=== PATIENT | male | born 1945 | race Caucasian/White ===

== ENCOUNTER → 2018-08-05 | Outpatient (CLI) | payer MEDICARE ==
[~2018-08-05] MED LIST: ARICEPT10 MG PO; CARBIDOPA-LEVO1 EA11 PO; COZAAR100 MG PO; CYMBALTA60 MG; DULCOLAX STOOL100 MG; ECOTRIN81 MG; FENOFIBRATE145 MG; FINASTERIDE5 MG PO; HUMULIN N100 UNITS/ SC; LEVODOPA5 GM; MYRBETRIQ25 MG PO; NAMENDA10 MG PO; NORVASC5 MG PO; PANTOPRAZOLE SO40 MG PO; REGADENOSON 0.4 MG/5 ML SYR IV ONE; SEROQUEL25 MG PO; SEROQUEL300 MG PO; SUCRALFATE1 GM PO; SYNTHROID75 MCG PO; TOPROL XL25 MG PO; VITAMIN B-121000 MC2; WELLBUTRIN XL300 MG; ZINC50 M1 PO
--- NOTE | 2018-08-05 15:52 | Cardiology Report ---
DATE OF STUDY: August 05, 2018 NUCLEAR STRESS TEST PROCEDURE: Rest stress SPECT imaging with pharmacologic stressing and gated SPECT imaging. INDICATIONS: Chest pain. PROCEDURE: Pharmacologic stress testing was performed with regadenoson per protocol. The heart rate was 55 beats at rest and increased to 57 6eats per minute during the regadenoson infusion. The rest blood pressure was 135/72 mmHg and decreased to 126/68 mmHg, which is a normal response. Patient did not develop any symptoms. The resting electrocardiogram demonstrated normal sinus bradycardia. There were no S/T segment changes suggestive of myocardial ischemia. Myocardial perfusion imaging was performed at rest following the injection of 10.9 millicuries of tetrofosmin. At peak pharmacologic effect, the patient was injected with 32.7 millicuries of tetrofosmin. Gated post rest tomographic imaging was performed. FINDINGS: The overall quality of the study is fair. Left ventricular cavity was noted to be normal on the rest and stress studies. SPECT images demonstrate homogenous tracer distribution throughout the myocardium. Gated SPECT imaging reveals normal myocardial thickening and wall motion. The left ventricular ejection fraction is calculated to be 51%. IMPRESSION: Myocardial perfusion imaging is normal. Overall left ventricular systolic function was normal without regional wall motion abnormalities. Compared to prior study done March 12, 2018, no significant changes were noted. Job#: [id number] SRAVANTHI
== END ==
LOC: NM 09:10
PROVIDERS: ATTEND Internal Medicine Interventional Cardiology
DX: I20.8 Other forms of angina pectoris (principal)
CPT/HCPCS: 78452; 93017; A9502; J2785

== ENCOUNTER 2019-08-29 16:17 | Observation (INO) | payer MEDICARE, OTHER ==
[~2019-08-29] VITALS: Ht 203.2 cm; Wt 120.2 kg
[~2019-08-29 16:17] MED LIST changes: -FENOFIBRATE145 MG; +FENOFIBRATE145 MG PO; +FLOMAX0.4 MG PO; +LOSARTAN POTASS50 MG PO; +NOVOLIN N100 UNIT/1 SQ; +NOVOLOG100 UNITS1 SQ; -REGADENOSON 0.4 MG/5 ML SYR IV ONE; -WELLBUTRIN XL300 MG; +WELLBUTRIN XL300 MG PO
--- NOTE | 2019-08-29 17:34 | Diagnostic Imaging Report ---
EXAMINATION: CHEST SINGLE (PORTABLE) INDICATION: Chest pain COMPARISON: Chest radiograph of 08/03/2019 FINDINGS: LINES/TUBES:EKG leads overlie the chest. LUNGS:The lung volumes are low. There is perihilar fullness and indistinctness of the pulmonary vasculature. PLEURA:No pleural effusion or pneumothorax. MEDIASTINUM:Cardiomediastinal silhouette is stably enlarged. BONES/SOFT TISSUES:No acute osseous injury. ABDOMEN:No free air under the diaphragm. IMPRESSION: Low lung volumes. Likely interstitial pulmonary edema. No focal pneumonia. Signed by: Bello Lamar MD on 08/29/2019 5:31 PM
[2019-08-29 18:18] LABS: BASOPHILS # (AUTO) 0.1 (0.0-0.1); BASOPHILS % 1.2 % (0.0-1.0); EOSINOPHILS # (AUTO) 0.2 (0.0-0.4); EOSINOPHILS % 5.7 % (0.0-6.0); HEMATOCRIT 35.1 % (38.2-49.6); HEMOGLOBIN 11.3 g/dL (14.0-18.0); LYMPHOCYTES # (AUTO) 0.9 (1.0-3.2); MEAN CORPUSCULAR HEMOGLOBIN 28.3 pg (28-32); MEAN CORPUSCULAR HGB CONC 32.2 g/dL (31-35); MEAN CORPUSCULAR VOLUME 87.8 fL (81-99); MONOCYTES # (AUTO) 0.4 (0.2-0.8); MONOCYTES % 10.9 % (4.4-11.3); NEUTROPHILS # (AUTO) 2.4 (2.1-6.9); NEUTROPHILS % 59.2 % (38.7-80.0); RED CELL DISTRIBUTION WIDTH 15.5 % (11.7-14.4)
[2019-08-29 18:19] LABS: PLATELET COUNT 75 x10e3/uL (140-360)
[2019-08-29 18:27] LABS: ALANINE AMINOTRANSFERASE 57 IU/L (0-55); ALBUMIN 3.8 g/dL (3.5-5.0); ALBUMIN/GLOBULIN RATIO 1.5 (0.8-2.0); ALKALINE PHOSPHATASE 97 IU/L (40-150); ANION GAP 17.5 mmol/L (8-16); BLOOD UREA NITROGEN 15 mg/dL (7-26); BUN/CREATININE RATIO 11 (6-25); CALCIUM 9.2 mg/dL (8.4-10.2); CARBON DIOXIDE 17 mmol/L (22-29); CHLORIDE 105 mmol/L (98-107); CREATINE KINASE 136 IU/L (30-200); CREATININE, SERUM 1.39 mg/dL (0.72-1.25); EST GLOMERULAR FILTRATION RATE 50 ML/MIN (60-); GLUCOSE 248 mg/dL (74-118); POTASSIUM 4.5 mmol/L (3.5-5.1); SODIUM 135 mmol/L (136-145)
--- NOTE | 2019-08-29 19:13 | NUR ---
report given to Baldomero Mccann for continued care
[2019-08-29 20:00] VITALS: BP 145/65
--- NOTE | 2019-08-29 20:26 | NUR ---
Patient arrived to unit from ER via stretcher. No s/s of distress or c/o pain at this time. All safety measures in place. Family at bedside. Will continue to monitor.
[2019-08-29] MEDS ORDERED: ATIVAN1 MG PO (20:51)
[2019-08-29] MEDS ORDERED: TYLENOL WITH C1 EACH PO (20:51)
[2019-08-29] MEDS ORDERED: BRILINTA90 MG PO (20:51)
[2019-08-29] MEDS ORDERED: MIRALAX17 GM PO (20:51)
[2019-08-29 20:56] VITALS: BP 145/65
--- NOTE | 2019-08-29 22:11 | NUR ---
Spoke with Roque Stephens AIR TANK ASSEMBLER regarding patient's elevated blood glucose of 235 and minor c/o of chest pain. Received orders to continue NPH from patient's home medication list and to place patient on low-dose sliding scale of regular insulin. Patient refusing morphine for chest pain. Received orders to continue Tylenol #3, Ativan, and Seroquel from patient's home medication list. Per AIR TANK ASSEMBLER, place patient on renal ADA diet. Will continue to monitor patient.
[2019-08-29] MEDS ORDERED: QUETIAPINE FUMARATE 25 MG TAB PO SCH (22:15)
[2019-08-29] MEDS ORDERED: NPH, HUMAN INSULIN ISOPHANE 100 UNIT/1 ML 3ML VIAL SQ SCH (22:15)
[2019-08-29] MEDS ORDERED: DEXTROSE 50% SYRINGE 50 ML IV PRN (22:15)
--- NOTE | 2019-08-29 22:15 | NUR ---
Patient says he takes 10 mg of Ativan BID PRN. Dose questioned by pharmacy. Patient states he can "make it through the night" without Ativan. Will discuss with provider in AM. Patient in stable condition, no s/s of distress at this time. Will continue to monitor.
[2019-08-29 22:20] VITALS: BP 145/65
[2019-08-29] MEDS: QUETIAPINE FUMARATE 100 MG TAB PO SCH (22:48)
[2019-08-29] MEDS: ACETAMINOPHEN/CODEINE 300MG - 30MG TAB PO PRN (22:48)
--- NOTE | 2019-08-29 22:49 | NUR ---
Patient states that he normally takes 90 units of NPH insulin BID. Requested that nurse administer 70 units at this time. Will continue to monitor patient.
[2019-08-30] VITALS (8 sets, daily range): BP systolic 109–159; BP diastolic 53–76
[2019-08-30 00:25] LABS: CREATINE KINASE 77 IU/L (30-200)
[2019-08-30 05:44] LABS: CHOL/HDL RATIO 4.6 (3.9-4.7)
[2019-08-30 06:10] LABS: CREATINE KINASE MB 1.3 ng/mL (0-5.0)
--- NOTE | 2019-08-30 07:00 | NUR ---
bedside rounds done. pt is alert resting in bed, no s/s of distress. call light within reach and instructed pt to call RN for help
--- NOTE | 2019-08-30 07:16 | NUR ---
Bedside report given to day nurse. Patient resting in bed, no s/s of distress or c/o pain at this time. All safety measures in place.
[2019-08-30] MEDS ORDERED: ACETAMINOPHEN 325 MG TAB PO PRN (07:30)
[2019-08-30] MEDS ORDERED: HYDRALAZINE HCL 20 MG/ML VIAL IV PRN (07:30)
[2019-08-30] MEDS ORDERED: ONDANSETRON HCL INJ 2MG/ML 2ML 2 MG/ML VIAL IV PRN (07:30)
[2019-08-30] MEDS: DONEPEZIL HCL 5 MG TAB PO SCH (08:00)
[2019-08-30] MEDS: INSULIN REGULAR, HUMAN 100 UNIT/1 ML 3ML VIAL SQ SCH ×4 (08:00→22:49)
[2019-08-30] MEDS: LEVOTHYROXINE SODIUM 75 MCG TAB PO SCH (08:00)
[2019-08-30] MEDS: LOSARTAN POTASSIUM 100 MG TAB PO SCH (08:01)
[2019-08-30] MEDS: TICAGRELOR 90 MG TABLET PO SCH ×2 (08:01→17:00)
[2019-08-30] MEDS: PANTOPRAZOLE SOD 40 MG TABEC PO SCH (08:02)
[2019-08-30] MEDS: FENOFIBRATE 160 MG TAB PO SCH (08:02)
[2019-08-30] MEDS: TAMSULOSIN HCL 0.4 MG CAP PO SCH (08:02)
[2019-08-30] MEDS: MEMANTINE 10 MG TAB PO SCH ×2 (08:02→17:27)
[2019-08-30] MEDS: AMLODIPINE BESYLATE 5 MG TAB PO SCH (08:02)
[2019-08-30] MEDS: QUETIAPINE FUMARATE 100 MG TAB PO SCH ×2 (08:03→20:51)
[2019-08-30] MEDS: METOPROLOL SUCCINATE 25 MG TAB XL PO SCH (08:04)
[2019-08-30] MEDS: BUPROPION HCL 150 MG TABCR PO SCH (08:04)
[2019-08-30] MEDS ORDERED: FUROSEMIDE INJ 10 MG/ML 2 ML VIAL IV ONE (08:20)
[2019-08-30] MEDS ORDERED: FENOFIBRATE 145 MG TAB PO SCH (09:00)
[2019-08-30] MEDS ORDERED: ASPIRIN 81 MG CHEW TAB PO SCH (09:00)
[2019-08-30] MEDS ORDERED: CLOPIDOGREL BISULFATE 75 MG TAB PO SCH (09:00)
[2019-08-30] MEDS: ACETAMINOPHEN/CODEINE 300MG - 30MG TAB PO PRN ×3 (09:20→22:50)
[2019-08-30] MEDS: POLYETHYLENE GLYCOL 3350 17 GM PACK PO PRN (09:20)
--- NOTE | 2019-08-30 15:35 | NUR ---
WOUND CARE CONSULT 74 YO MALE HX OF CHEST PAIN , LOOSE STOOL VALERIE 19 ON MODERATE PUP STATUS AND INTERVENTIONS AND ALTERNATING PRESSURE SURFACE LABS: WBC- 4.05, HGB- 11.3 SKIN ASSESSMENT COMPLETE PATIENT PRESENTS WITH LEFT BALJIT ANAL/ GLUTEAL DENUDED AREA 1CM X1CM X.1CM R/T LOOSE STOOL RECENTLY PATIENT REPORTS AREA COMES AND GOES RECOMMENDATIONS: NURSING TO CONTINUE TO MAINTAIN MODERATE PUP STATUS AND INTERVENTIONS AND ALTERNATING MATTRESS NURSING TO CONTINUE TO ASSIST PATIENT OUT OF BED FOR MEALS AND MUCH TOLERATED NURSING TO HELP PATIENT MAINTAIN CLEAN BUTTOCKS / BALJIT AREA DAILY APPLY CALAZIME BARRIER PASTE TO BUTTOCKS AND BALJIT AREA Addendum: 08/30/19 at 1542 by Bob Arvizu RN Amended: Links added.
[2019-08-30] MEDS: LORAZEPAM INJ 2 MG/ML VIAL IV PRN (17:27)
--- NOTE | 2019-08-30 19:17 | NUR ---
bedside shift report received from RN Dyan, patient awake alert, no distress noted, skin warm dry, call light within reach, patient inquiring about last dose of pain medication, next scheduled dose, educated on next dose time, board update will resume care of patient
[2019-08-30] MEDS: ATORVASTATIN 20 MG TAB PO SCH (20:50)
--- NOTE | 2019-08-30 21:45 | NUR ---
MD arlet santoro made aware that patient is requesting NPH@HS 90 units, states "Thats what I take at night" epr CHRISTI Santoro cover with sliding scale and they will reevaluate in the morning
[2019-08-30] MEDS ORDERED: QUETIAPINE FUMARATE 25 MG TAB PO SCH (22:15)
[2019-08-30] MEDS ORDERED: NPH, HUMAN INSULIN ISOPHANE 100 UNIT/1 ML 3ML VIAL SQ SCH (22:15)
[2019-08-31] VITALS (10 sets, daily range): BP systolic 122–174; BP diastolic 58–89
--- NOTE | 2019-08-31 | NUR ---
PATIENT NPO FOR PROCEDURE MATERIAL HANDLING WAREHOUSE SUPERVISOR THIS AM, CATERING MANAGER MADE AWARE OF PATIENT SCHEDULED PROCEDURE THIS AM, ALL WATER AND ICE REMOVED FROM PATIENT REACH, AND PATIENT EDUCATED ON PRE-PROCEDURE REQUIREMENT NPO, PT COMPLIANT
--- NOTE | 2019-08-31 01:20 | Consultation ---
DATE OF CONSULTATION: 08/30/2019 Cardiology Consult Note REASON FOR CONSULT: Chest pain. CHIEF COMPLAINT: Chest pain. HISTORY OF PRESENT ILLNESS: The patient is a 74-year-old man, who is known to me. He was recently admitted to the hospital with chest pain, had an abnormal stress test. However, before he could undergo coronary angiography, developed small-bowel obstruction requiring laparoscopic lysis of adhesion. Once recovered from a small-bowel obstruction and underwent coronary angiography which showed multivessel CAD, had PCI to the LAD and RCA with residual disease in the left circumflex, which was to be treated in a staged fashion. Once he completed his outpatient rehab and followed up in the office, however, now he is presenting with chest pain, left-sided, goes to his back feels like pressure, radiating down to his left arm. He says chest pain is not necessarily exertional, lasts several minutes to several hours. The patient overall is a poor historian and has history of some psych issues and is on significant medications for this as well. REVIEW OF SYSTEMS: As per HPI, otherwise negative. PAST MEDICAL HISTORY: 1. Hypertension. 2. Hyperlipidemia. 3. Diabetes. 4. CAD, status post recent PCI to the LAD and RCA with drug-eluting stent. 5. Small bowel obstruction, status post recent . SOCIAL HISTORY: He does not smoke, drink, or abuse drugs. FAMILY HISTORY: Noncontributory. OUTPATIENT MEDICATIONS: Reviewed. ALLERGIES: ALLERGIC TO SULFA ANTIBIOTICS, DIVALPROEX, LITHIUM, AND SUMATRIPTAN. PHYSICAL EXAMINATION: VITAL SIGNS: Temperature afebrile, pulse 58, respiratory rate 20, blood pressure 133/63, and saturating 96%. GENERAL: No acute distress, well developed and well nourished. CARDIOVASCULAR: Regular rate and rhythm. No murmurs, rubs, or gallops. LUNGS: Clear to auscultation. Decreased breath sounds at the bases. ABDOMEN: Obese, soft, nontender, and nondistended. NEURO AND PSYCH: Alert and oriented to person, place, and time. Normal affect. EXTREMITIES: Lower extremities, warm and well perfused. No ulcerations. 1+ edema at the ankles. INPATIENT MEDICATIONS: Reviewed. LABORATORY DATA: Reviewed. Troponins negative x3. TELEMETRY DATA: Reviewed shows normal sinus rhythm. IMAGING DATA: Reviewed. Chest x-ray shows low lung volumes. ASSESSMENT AND PLAN: 1. Coronary artery disease, status post stent to the LAD and RCA recently with the debridement of left circumflex. 2. Chest pain with typical and atypical features. 3. Hypertension. 4. Hyperlipidemia. 5. Diabetes. PLAN: The patient does have some residual CAD, that requires planned PCI to the left circumflex. Discussed with the patient regarding options, doing this is an outpatient versus performing while he is in the hospital. The patient has already been ruled out for acute LA with serial troponins. The patient prefers to complete his revascularization. Given ongoing episodes of chest pain, we will plan for coronary angiography with intervention, possibly tomorrow or depending on renal function. We will continue to follow. MD NOHEMY Richardson/SHIRAL /[id number]
[2019-08-31] MEDS: LEVOTHYROXINE SODIUM 75 MCG TAB PO SCH (06:31)
--- NOTE | 2019-08-31 06:32 | NUR ---
PATIENT AM MEDICATION GIVEN WITH SMALL SIP OF WATER
[2019-08-31 07:36] LABS: BASOPHILS % 0.8 % (0.0-1.0); EOSINOPHILS # (AUTO) 0.3 (0.0-0.4); EOSINOPHILS % 7.2 % (0.0-6.0); HEMATOCRIT 35.2 % (38.2-49.6); HEMOGLOBIN 11.6 g/dL (14.0-18.0); LYMPHOCYTES % 26.3 % (18.0-39.1); MEAN CORPUSCULAR HEMOGLOBIN 27.8 pg (28-32); MEAN CORPUSCULAR VOLUME 84.2 fL (81-99); MONOCYTES # (AUTO) 0.5 (0.2-0.8); MONOCYTES % 12.2 % (4.4-11.3); PLATELET COUNT 155 x10e3/uL (140-360); RED BLOOD COUNT 4.18 x10e6/uL (4.3-5.7); RED CELL DISTRIBUTION WIDTH 15.4 % (11.7-14.4)
[2019-08-31] MEDS: INSULIN REGULAR, HUMAN 100 UNIT/1 ML 3ML VIAL SQ SCH ×4 (07:57→20:30)
[2019-08-31 07:59] LABS: ANION GAP 15.9 mmol/L (8-16); CALCIUM 9.3 mg/dL (8.4-10.2); CREATININE, SERUM 1.33 mg/dL (0.72-1.25); POTASSIUM 3.9 mmol/L (3.5-5.1)
[2019-08-31] MEDS: FENOFIBRATE 160 MG TAB PO SCH (08:27)
[2019-08-31] MEDS: TAMSULOSIN HCL 0.4 MG CAP PO SCH (08:27)
[2019-08-31] MEDS: LOSARTAN POTASSIUM 100 MG TAB PO SCH (08:27)
[2019-08-31] MEDS: DONEPEZIL HCL 5 MG TAB PO SCH (08:27)
[2019-08-31] MEDS: TICAGRELOR 90 MG TABLET PO SCH ×2 (08:27→16:23)
[2019-08-31] MEDS: AMLODIPINE BESYLATE 5 MG TAB PO SCH (08:28)
[2019-08-31] MEDS: METOPROLOL SUCCINATE 25 MG TAB XL PO SCH (08:28)
[2019-08-31] MEDS: QUETIAPINE FUMARATE 100 MG TAB PO SCH ×2 (08:28→22:16)
[2019-08-31] MEDS: BUPROPION HCL 150 MG TABCR PO SCH (08:28)
[2019-08-31] MEDS: MEMANTINE 10 MG TAB PO SCH ×2 (08:28→16:29)
[2019-08-31] MEDS: PANTOPRAZOLE SOD 40 MG TABEC PO SCH (08:28)
[2019-08-31] MEDS: ACETAMINOPHEN/CODEINE 300MG - 30MG TAB PO PRN ×2 (08:40→20:30)
[2019-08-31] MEDS: LORAZEPAM INJ 2 MG/ML VIAL IV PRN (08:40)
--- NOTE | 2019-08-31 11:52 | NUR ---
Sent to R1 for review.
--- NOTE | 2019-08-31 16:00 | NUR ---
R1 recommending outpatient. Pt to have heart cath tomorrow.
--- NOTE | 2019-08-31 19:02 | NUR ---
SBAR report received from shift, resume care of patient, patient seen in bed AOX3, specialist employee labor relations procedure today cancelled, rescheduled for 09/01/19, patinet will be NPO after midnight, made aware during shift report, acknowledge understanding with teachback, patient whiteboard updated bed in lowest position call light within reach
[2019-08-31] MEDS: POLYETHYLENE GLYCOL 3350 17 GM PACK PO SCH ×2 (20:20→20:40)
[2019-08-31] MEDS: DOCUSATE SODIUM 100 MG CAP PO SCH (20:40)
--- NOTE | 2019-08-31 20:55 | Progress Note ---
DATE: 08/31/2019 Cardiology Progress Note SUBJECTIVE: The patient continues to complain of chest pain and shortness of breath. He reports that chest pain radiates to the left arm and black back. OBJECTIVE: VITAL SIGNS: Temperature 98.3, pulse 67, respiratory rate 18, blood pressure 138/87, and oxygen saturation 97%. GENERAL: Awake, alert, in no distress. LUNGS: Decreased breath sounds at the bases, otherwise clear to auscultation. CARDIOVASCULAR: Normal rate, regular rhythm. No murmur. Normal S1, S2. ABDOMEN: Soft, nontender. EXTREMITIES: 1+ edema. CARDIAC MEDICATIONS: 1. Metoprolol succinate 25 mg p.o. daily. 2. Amlodipine 5 mg p.o. daily. 3. Losartan 50 mg p.o. daily. 4. Levothyroxine 75 mcg p.o. daily. 5. Atorvastatin 20 mg p.o. at bedtime. 6. Ticagrelor 90 mg p.o. b.i.d.. LABORATORY DATA: WBC 3.76, hemoglobin 11.6, hematocrit 35.2, and platelets 155. Sodium 137, potassium 3.9, chloride 105, CO2 of 20, BUN 15, creatinine 1.33. Telemetry was personally reviewed and interpreted, revealing normal sinus rhythm. IMPRESSION: 1. Coronary artery disease, status post LAD and RCA PCI with residual disease of the circumflex. 2. Chest pain with typical and atypical features. 3. Hypertension. 4. Hyperlipidemia. 5. Diabetes mellitus. RECOMMENDATIONS: Planned for PCI of the circumflex tomorrow. Continue dual anti-platelet therapy. Continue current cardiac medications. Monitor the patient closely on Telemetry. Blood pressure control. We will titrate up metoprolol. Thank you for this consult. We will continue to follow. Nannette Landis MD ABS/MODL /[id number]
[2019-08-31] MEDS: ATORVASTATIN 20 MG TAB PO SCH (22:16)
[2019-09-01] VITALS (19 sets, daily range): BP systolic 112–170; BP diastolic 59–92
[2019-09-01] MEDS: LORAZEPAM INJ 2 MG/ML VIAL IV PRN ×2 (00:55→19:49)
[2019-09-01 05:31] LABS: BASOPHILS # (AUTO) 0.1 (0.0-0.1); BASOPHILS % 1.3 % (0.0-1.0); EOSINOPHILS # (AUTO) 0.3 (0.0-0.4); EOSINOPHILS % 6.6 % (0.0-6.0); HEMATOCRIT 33.9 % (38.2-49.6); HEMOGLOBIN 11.2 g/dL (14.0-18.0); LYMPHOCYTES # (AUTO) 1.1 (1.0-3.2); LYMPHOCYTES % 28.5 % (18.0-39.1); MEAN CORPUSCULAR HEMOGLOBIN 28.3 pg (28-32); MEAN CORPUSCULAR VOLUME 85.6 fL (81-99); MONOCYTES # (AUTO) 0.5 (0.2-0.8); MONOCYTES % 11.9 % (4.4-11.3); NEUTROPHILS # (AUTO) 1.9 (2.1-6.9); NEUTROPHILS % 50.9 % (38.7-80.0); PLATELET COUNT 154 x10e3/uL (140-360); RED BLOOD COUNT 3.96 x10e6/uL (4.3-5.7); RED CELL DISTRIBUTION WIDTH 15.3 % (11.7-14.4)
[2019-09-01] MEDS: LEVOTHYROXINE SODIUM 75 MCG TAB PO SCH (05:37)
[2019-09-01 05:50] LABS: ANION GAP 16.8 mmol/L (8-16); CALCIUM 9.2 mg/dL (8.4-10.2); CREATININE, SERUM 1.32 mg/dL (0.72-1.25); MAGNESIUM 1.7 MG/DL (1.3-2.1); PHOSPHORUS 3.9 MG/DL (2.3-4.7); POTASSIUM 3.8 mmol/L (3.5-5.1)
[2019-09-01] MEDS: TICAGRELOR 90 MG TABLET PO SCH ×2 (07:00→17:00)
[2019-09-01] MEDS: INSULIN REGULAR, HUMAN 100 UNIT/1 ML 3ML VIAL SQ SCH ×4 (07:45→22:18)
[2019-09-01] MEDS: FENOFIBRATE 160 MG TAB PO SCH (09:00)
[2019-09-01] MEDS ORDERED: LIDOCAINE HCL 2% LOCAL 20 ML VIAL ONE (12:23)
[2019-09-01] MEDS ORDERED: HEPARIN SOD/SOD CHLORIDE 1,000 ML ONE (12:23)
[2019-09-01] MEDS ORDERED: IOPAMIDOL 370 MG/ML 200 ML INFUS..BTL INJ ONE ×2 (12:23→14:14)
[2019-09-01] MEDS ORDERED: HEPARIN SOD (PORCINE) 1000 UNIT/ML 30ML ONE (12:23)
[2019-09-01] MEDS ORDERED: SODIUM CHLORIDE 0.9% 1000ML 1,000 ML ONE (12:24)
[2019-09-01] MEDS ORDERED: MIDAZOLAM HCL 2 MG/2 ML VIAL ONE ×2 (12:28→14:17)
[2019-09-01] MEDS ORDERED: VERAPAMIL HCL 2.5 MG/ML 2 ML VIAL ONE (12:28)
[2019-09-01] MEDS ORDERED: FENTANYL CITRATE/PF 100MCG/2 ML INJ ONE (12:29)
[2019-09-01] MEDS ORDERED: NITROGLYCERIN/D5W 200 MCG/ML 250 ML ONE (12:29)
[2019-09-01] MEDS ORDERED: TICAGRELOR 90 MG TABLET ONE (14:06)
--- NOTE | 2019-09-01 14:25 | NUR ---
1425Received pt to room#10, Identiferx2,bedside report received from SITA Nails. Alert oriented and appropriate, PERRLA, respirations even and unlabored to room air. Pulses x4 extremities equal and strong. Pedal pulses PT/DP x4 Cap fill brisk < 3 sec. Rt Tr band approach ok to decrease air at 1615pm. No gross issues pain,pallor,pressure or dysthrhmia. Skin warm and dry integrity appears D/I. IV 20g to left wrist, presents healthy w/o s/s of infiltration or complaint. Abdomen soft and supple. pt offered toileting, denies need to urinate or defecate. No personal affects with patient. Family at bedside. Pt and family verbalizes understanding of POC. Currently w/o complaint of pain or need. Ordered diet restart and reaching out to Dr Boyd to speak to . mitch/sita
[2019-09-01] MEDS: DOCUSATE SODIUM 100 MG CAP PO SCH ×3 (15:00→20:04)
--- NOTE | 2019-09-01 16:15 | NUR ---
1615pm RADIAL Compression removal: Initial Cuff volume 12 cc 1615p -2cc Removed No hematoma/bleeding noted with normal neurovascular function. 1630p -5cc Removed No hematoma/ bleeding noted with normal neurovascular function. 1645 -5 cc Removed No hematoma/bleeding noted with normal neurovascular function. Air removal completed. Stasis achieved sterile 2x2,Tegaderm, Coban dressing No hematoma, bleeding noted with normal neurovascular function. Wrist splint in place. Pt instructed on POC. Ds/Rn
[2019-09-01] MEDS: MEMANTINE 10 MG TAB PO SCH ×2 (17:00→17:37)
[2019-09-01] MEDS: POLYETHYLENE GLYCOL 3350 17 GM PACK PO SCH ×2 (17:00→17:37)
--- NOTE | 2019-09-01 17:00 | NUR ---
1700 Called report to Jluis BUCKNER. Dr Boyd did speak to on phone and update on findings. Discussed Tr band site care with teaching tool Presented pt with diagram,stent card and instructions to call office and cancel. Thursday recheck appt. and f/o 2wks Transfer per bed with tele on with RN escort. Stable vs and ekg. Family aware of importance of f/o care. Bed in low position,call light at bedside and pt aware to ask for help. No gross issues pain,pallor,pressure or dysrhythmia. Tr band reminder splint may be removed in am. mitch/jasmin
[2019-09-01] MEDS: DONEPEZIL HCL 5 MG TAB PO SCH (17:35)
[2019-09-01] MEDS: ASPIRIN 81 MG ENTERIC COATED PO SCH (17:35)
[2019-09-01] MEDS: TAMSULOSIN HCL 0.4 MG CAP PO SCH (17:37)
[2019-09-01] MEDS: PANTOPRAZOLE SOD 40 MG TABEC PO SCH (17:37)
[2019-09-01] MEDS: LOSARTAN POTASSIUM 100 MG TAB PO SCH (17:37)
[2019-09-01] MEDS: QUETIAPINE FUMARATE 100 MG TAB PO SCH ×2 (17:37→22:25)
[2019-09-01] MEDS: AMLODIPINE BESYLATE 5 MG TAB PO SCH (17:37)
[2019-09-01] MEDS: METOPROLOL SUCCINATE 25 MG TAB XL PO SCH (17:38)
[2019-09-01] MEDS: BUPROPION HCL 150 MG TABCR PO SCH (17:38)
--- NOTE | 2019-09-01 19:23 | NUR ---
SBAR received from Jluis BUCKNER, patient seen awake alert, no c/o pressure pain noted at right radial site s/p labor arbitrator hearing office stent placement, no bleeding dressing C/D/I, Tr band reminder splint may be removed in am. patient requesting ativan at shift change, per SITA ziegler patient was given medication late, pt aware that 2100 dose of seroquel will be given at appropriate time, call light within reach, denies need to urinate or defecate, urinal at bedside
[2019-09-01] MEDS: ATORVASTATIN 20 MG TAB PO SCH (20:04)
--- NOTE | 2019-09-01 23:32 | NUR ---
MD Prince alegre, pt seen and evaluated, pt update s/p stent placement given verbally to MD SWAIN, INCENTIVE SPIROMETRY PROTOCOL ORDERED, CARRIED OUT, PATIENT EDUCATED ON IS, EDUCATE TO USE ONCE qHOUR WHILE AWAKE, ACKNOWLEDGE UNDERSTANDING WITH TEACHBACK
[2019-09-01] MEDS ORDERED: DEXTROSE 50% SYRINGE 50 ML IV PRN (23:45)
[2019-09-02] VITALS (10 sets, daily range): BP systolic 123–144; BP diastolic 60–74
[2019-09-02] MEDS: POLYETHYLENE GLYCOL 3350 17 GM PACK PO PRN (00:01)
[2019-09-02] MEDS: LEVOTHYROXINE SODIUM 75 MCG TAB PO SCH (04:56)
--- NOTE | 2019-09-02 05:14 | NUR ---
0430 patient HR report 50 bpm during routine vitals check, reassessed at 0435 patient HR noted 62bpm, no distress noted, skin warm dry, denies chest pain 0500 schedule medication given to patient PO tolerated well, continues to deny Chest Pressure, chest pressure lightheadedness, or heart palpitations
[2019-09-02 05:51] LABS: EOSINOPHILS # (AUTO) 0.3 (0.0-0.4); EOSINOPHILS % 6.4 % (0.0-6.0); HEMATOCRIT 34.4 % (38.2-49.6); HEMOGLOBIN 11.2 g/dL (14.0-18.0); LYMPHOCYTES # (AUTO) 0.9 (1.0-3.2); MEAN CORPUSCULAR HEMOGLOBIN 27.8 pg (28-32); MEAN CORPUSCULAR HGB CONC 32.6 g/dL (31-35); MEAN CORPUSCULAR VOLUME 85.4 fL (81-99); MONOCYTES # (AUTO) 0.5 (0.2-0.8); MONOCYTES % 11.5 % (4.4-11.3); NEUTROPHILS # (AUTO) 2.5 (2.1-6.9); NEUTROPHILS % 58.6 % (38.7-80.0); PLATELET COUNT 160 x10e3/uL (140-360); RED BLOOD COUNT 4.03 x10e6/uL (4.3-5.7); RED CELL DISTRIBUTION WIDTH 15.2 % (11.7-14.4)
[2019-09-02 06:23] LABS: BLOOD UREA NITROGEN 16 mg/dL (7-26); BUN/CREATININE RATIO 14 (6-25); CALCIUM 9.2 mg/dL (8.4-10.2); CARBON DIOXIDE 20 mmol/L (22-29); CHLORIDE 106 mmol/L (98-107); CREATININE, SERUM 1.14 mg/dL (0.72-1.25); EST GLOMERULAR FILTRATION RATE > 60 ML/MIN (60-); GLUCOSE 267 mg/dL (74-118); MAGNESIUM 1.6 MG/DL (1.3-2.1); PHOSPHORUS 3.5 MG/DL (2.3-4.7); SODIUM 138 mmol/L (136-145)
[2019-09-02] MEDS ORDERED: INSULIN REGULAR, HUMAN 100 UNIT/1 ML 3ML VIAL SQ SCH (07:30)
[2019-09-02] MEDS ORDERED: TOPROL XL25 MG PO (08:18)
[2019-09-02] MEDS ORDERED: LIPITOR20 MG PO (08:18)
[2019-09-02] MEDS ORDERED: ASPIRIN EC81 MG PO (08:18)
--- NOTE | 2019-09-02 08:24 | NUR ---
09/01 S/P CATH WITH 2 VESSEL STENT PLACEMENT SENT RESULTS OF CATH TO R1 STILL RECOMMENDING OUTPATIENT
[2019-09-02] MEDS: DOCUSATE SODIUM 100 MG CAP PO SCH ×3 (09:00→21:39)
[2019-09-02] MEDS: AMLODIPINE BESYLATE 5 MG TAB PO SCH (09:00)
[2019-09-02] MEDS: TAMSULOSIN HCL 0.4 MG CAP PO SCH (09:00)
[2019-09-02] MEDS: TICAGRELOR 90 MG TABLET PO SCH ×2 (09:00→16:51)
[2019-09-02] MEDS: MEMANTINE 10 MG TAB PO SCH ×2 (09:00→16:51)
[2019-09-02] MEDS: METOPROLOL SUCCINATE 25 MG TAB XL PO SCH (09:00)
[2019-09-02] MEDS: ASPIRIN 81 MG ENTERIC COATED PO SCH (09:00)
[2019-09-02] MEDS: DONEPEZIL HCL 5 MG TAB PO SCH (09:00)
[2019-09-02] MEDS: LOSARTAN POTASSIUM 100 MG TAB PO SCH (09:00)
[2019-09-02] MEDS: QUETIAPINE FUMARATE 100 MG TAB PO SCH ×2 (09:00→21:39)
[2019-09-02] MEDS: PANTOPRAZOLE SOD 40 MG TABEC PO SCH (09:00)
[2019-09-02] MEDS: FENOFIBRATE 160 MG TAB PO SCH (09:00)
[2019-09-02] MEDS: POLYETHYLENE GLYCOL 3350 17 GM PACK PO SCH ×2 (09:00→16:51)
[2019-09-02] MEDS: BUPROPION HCL 150 MG TABCR PO SCH (09:01)
--- NOTE | 2019-09-02 10:04 | NUR ---
EDUCATED ABOUT NAJERA, SIGNED, FILED IN CHART, WITH COPY LEFT WITH FAMILY AT BEDSIDE. FAXED CLINICALS TO [facility], PT WILL RETURN TODAY TO FACILITY.
[2019-09-02] MEDS: LORAZEPAM INJ 2 MG/ML VIAL IV PRN ×2 (10:12→23:04)
[2019-09-02] MEDS: NPH, HUMAN INSULIN ISOPHANE 100 UNIT/1 ML 3ML VIAL SQ SCH ×2 (11:37→17:38)
[2019-09-02] MEDS: INSULIN REGULAR, HUMAN 100 UNIT/1 ML 3ML VIAL SQ SCH ×4 (11:37→21:00)
--- NOTE | 2019-09-02 15:28 | NUR ---
SPOKE WITH [facility] AND SHE STATE DOES NOT HAVE CLINICALS COPIED AND HAND DELIVERED TO BUILDING, LET KNOW WHO WILL BE HERE TOMORROW AND THE NEED FOR APPROVAL TODAY OR TOMORROW.
--- NOTE | 2019-09-02 16:55 | NUR ---
OBS STATUS NO INPT PER R1 AWAIT AUTH FROM INSURANCE FOR TRANSFER BACK TO [facility]
--- NOTE | 2019-09-02 19:30 | NUR ---
BEDSIDE SHIFT REPORT RECEIVED FROM HALEIGH BUCKNER, PATIENT AWAKE ALERT, SKIN WARM DRY, LEFT HAND IV PATENT, CHART REVIEWED NO PENDING PROCEDURE, NO C/O PAIN OR DISCOMFORT AT THIS TIME, CALL LIGHT WITHIN REACH, EDUCATED ON HOURLY ROUNDING AND 5P'S, ACKNOWLEDGE UNDERSTANDING WITH TEACHBACK
--- NOTE | 2019-09-02 20:23 | Diagnostic Imaging Report ---
Examination: Single AP view of the chest. COMPARISON: 08/29 INDICATION: dyspnea DISCUSSION: Lines/tubes: None. Lungs: The lungs are well inflated and clear. No pneumonia or pulmonary edema. Pleura: There is no pleural effusion or pneumothorax. Heart and mediastinum: Cardiomegaly. Bones and soft tissues: No acute bony abnormalities. IMPRESSION: 1. No acute cardiopulmonary abnormalities. Signed by: Dr. Christiano Salinas M.D. on 09/02/2019 8:20 PM
[2019-09-02] MEDS: ACETAMINOPHEN/CODEINE 300MG - 30MG TAB PO PRN (21:38)
[2019-09-02] MEDS: ATORVASTATIN 20 MG TAB PO SCH (21:39)
--- NOTE | 2019-09-02 22:00 | NUR ---
PATIENT REQUESTING ATIVAN IV FOR AGITATION, IV LEFT WRIST PATENT FLUSHES W/O DIFFICULTY REQUEST CARRIED OUT, RESTING COMFORTABLY,
--- NOTE | 2019-09-02 23:17 | Progress Note ---
DATE: 09/02/2019 Cardiology Progress Note SUBJECTIVE: The patient reports he continues to have chest pain, but this has improved. He also endorses shortness of breath. OBJECTIVE: VITAL SIGNS: Temperature 97.1 degrees, pulse 65, respirations 18, blood pressure 131/71, oxygen saturation 97%. GENERAL: Awake, alert in no distress. LUNGS: Decreased breath sounds at the bases, otherwise clear to auscultation. CARDIOVASCULAR: Normal rate, regular rhythm. No murmur. Normal S1, S2. ABDOMEN: Soft, nontender. EXTREMITIES: 1+ trace edema. CARDIAC MEDICATIONS: Aspirin 81 mg p.o. daily, amlodipine 5 mg p.o. daily, levothyroxine 75 mcg p.o. daily, atorvastatin 20 mg p.o. at bedtime, metoprolol succinate 50 mg p.o. daily, and Brilinta 90 mg p.o. b.i.d. LABORATORY DATA: WBC 4.19, hemoglobin 11.2, hematocrit 34.4, and platelets 160. Sodium 138, potassium 4, chloride 106, CO2 of 20, BUN 16, and creatinine 1.14. TELEMETRY: Sinus bradycardia. IMPRESSION: 1. Coronary artery disease, status post LAD and circumflex PCI yesterday. 2. Chest pain with typical and atypical features. 3. Hypertension. 4. Hyperlipidemia. 5. Diabetes mellitus. RECOMMENDATIONS: The patient had PCI of the circumflex and LAD yesterday. Continue dual-antiplatelet therapy. Continue current cardiac medications. Monitor patient closely on telemetry. Blood pressure is acceptable. Given complaint of dyspnea, we will check BNP and chest x-ray. Thank you for this consult. We will continue to follow. Nannette Landis MD ABS/MODL /[id number]
[2019-09-03] VITALS (9 sets, daily range): BP systolic 126–142; BP diastolic 58–74
[2019-09-03] MEDS: LEVOTHYROXINE SODIUM 75 MCG TAB PO SCH (05:08)
[2019-09-03] MEDS: INSULIN REGULAR, HUMAN 100 UNIT/1 ML 3ML VIAL SQ SCH ×4 (07:44→21:00)
[2019-09-03] MEDS: NPH, HUMAN INSULIN ISOPHANE 100 UNIT/1 ML 3ML VIAL SQ SCH ×2 (08:32→17:32)
[2019-09-03] MEDS: FENOFIBRATE 160 MG TAB PO SCH (09:00)
--- NOTE | 2019-09-03 09:25 | NUR ---
Spoke with Rossi with admissions at [facility]. Still pending auth.
[2019-09-03] MEDS: LOSARTAN POTASSIUM 100 MG TAB PO SCH (09:28)
[2019-09-03] MEDS: TAMSULOSIN HCL 0.4 MG CAP PO SCH (09:28)
[2019-09-03] MEDS: AMLODIPINE BESYLATE 5 MG TAB PO SCH (09:28)
[2019-09-03] MEDS: MEMANTINE 10 MG TAB PO SCH ×2 (09:28→17:32)
[2019-09-03] MEDS: DONEPEZIL HCL 5 MG TAB PO SCH (09:28)
[2019-09-03] MEDS: TICAGRELOR 90 MG TABLET PO SCH ×2 (09:28→17:32)
[2019-09-03] MEDS: ASPIRIN 81 MG ENTERIC COATED PO SCH (09:28)
[2019-09-03] MEDS: POLYETHYLENE GLYCOL 3350 17 GM PACK PO SCH ×2 (09:28→17:32)
[2019-09-03] MEDS: DOCUSATE SODIUM 100 MG CAP PO SCH ×3 (09:28→22:00)
[2019-09-03] MEDS: BUPROPION HCL 150 MG TABCR PO SCH (09:29)
[2019-09-03] MEDS: METOPROLOL SUCCINATE 25 MG TAB XL PO SCH (09:29)
[2019-09-03] MEDS: QUETIAPINE FUMARATE 100 MG TAB PO SCH ×2 (09:29→22:00)
[2019-09-03] MEDS: PANTOPRAZOLE SOD 40 MG TABEC PO SCH (09:29)
--- NOTE | 2019-09-03 10:38 | Progress Note ---
DATE: 09/03/2019 Cardiology Progress Note SUBJECTIVE: The patient endorses some shortness of breath especially when he is moving around. He is mostly bed ridden. He denies any chest pain. OBJECTIVE: VITAL SIGNS: Temperature 97.4, pulse 55, respiratory rate 18, blood pressure 133/65, oxygen saturation 97% on room air. GENERAL: Alert and oriented x3. Resting comfortably in bed, does not appear to be in any acute distress. NECK: Supple. LUNGS: Diminished breath sounds throughout. No wheezing. No rhonchi or crackles. CARDIOVASCULAR: Normal rate and rhythm. No murmurs, no gallops. Normal S1, S2. ABDOMEN: Rounded, soft, nontender. EXTREMITIES: Lower extremity trace edema bilaterally. CARDIOVASCULAR MEDICATIONS: Metoprolol succinate 50 daily, aspirin 81 mg p.o. daily, amlodipine 5 mg p.o. daily, atorvastatin 20 mg p.o. at bedtime. LABORATORY DATA: WBC 4.19, hemoglobin 11.2, hematocrit 34.4, platelets 160. TELEMETRY: Sinus rhythm. IMAGING: Chest x-ray from yesterday with no acute cardiopulmonary abnormalities. IMPRESSION: 1. Coronary artery disease, status post LAD and circumflex PCI on . 2. Chest pain with typical and atypical features, which is resolved now. 3. Hypertension. 4. Hyperlipidemia. 5. Diabetes mellitus. 6. Morbid obesity. RECOMMENDATIONS: JAEGER and shortness of breath, likely related to morbid obesity. Continue to monitor recurrence of chest pain. For now, continue the above-listed cardiac medications. Continue to maintain on telemetry. The patient is stable from a cardiovascular standpoint and is okay for discharge with close followup with Cardiology. Dictated by Francisca Goldstein NP MD YAMILA Herrmann/HAN /[id number]
--- NOTE | 2019-09-03 11:40 | NUR ---
Jonh Richey with [facility], they need new PT notes for auth request. CHRISTI Vo placed order for PT to eval and treat.
[2019-09-03] MEDS: LORAZEPAM INJ 2 MG/ML VIAL IV PRN ×2 (12:24→22:02)
--- NOTE | 2019-09-03 18:35 | NUR ---
Nutrition Screen Note RD Recommendation for Physician: Consider liberalizing diet to a regular diet Plan of Care: RD following, monitoring for tolerance and adequacy Nutrition reason for involvement: LOS Primary Diagnose(s): Chest pain PMH: T2DM, CAD, HTN, hyperlipidemia Ht:80 in Wt: 261 lb BMI: 28.7kg/m2 IBW: [address] Assessment: Initial encounter with patient. Diet Hx. Pt has no known food allergies. Pt with C/O not getting enough food. Pt requesting larger portions. Pt with a good Po intake/appetite and RD agrees Pt would benefit from more calories. Pt denies any difficulty chewing or swallowing, nor has any N,V,D. No significant wt changes. Current Diet: 1800 ADA Malnutrition Evaluation (08/30/2019) The patient does not meet criteria for a specified degree of malnutrition at this time. Will re-evaluate at follow-up as appropriate. Diet Education Needs Assessment: Diet education not indicated Nutrition Care Level: marina Clayton RD, LD, [facility]
--- NOTE | 2019-09-03 19:55 | NUR ---
Received change of shift report from AM nurse. Walking rounds completed.
[2019-09-03] MEDS: ATORVASTATIN 20 MG TAB PO SCH (22:00)
[2019-09-04] VITALS (8 sets, daily range): BP systolic 110–179; BP diastolic 60–80
--- NOTE | 2019-09-04 | NUR ---
Patient turned q2 hours and PRN. BS at 271 insulin givens as ordered by .Pateint states I feel very good.
[2019-09-04 04:20] LABS: BASOPHILS % 0.6 % (0.0-1.0); EOSINOPHILS # (AUTO) 0.3 (0.0-0.4); EOSINOPHILS % 5.1 % (0.0-6.0); HEMATOCRIT 38.9 % (38.2-49.6); HEMOGLOBIN 12.6 g/dL (14.0-18.0); LYMPHOCYTES % 19.3 % (18.0-39.1); MEAN CORPUSCULAR HEMOGLOBIN 27.7 pg (28-32); MEAN CORPUSCULAR HGB CONC 32.4 g/dL (31-35); MEAN CORPUSCULAR VOLUME 85.5 fL (81-99); MONOCYTES # (AUTO) 0.4 (0.2-0.8); MONOCYTES % 8.8 % (4.4-11.3); NEUTROPHILS # (AUTO) 3.2 (2.1-6.9); NEUTROPHILS % 65.8 % (38.7-80.0); PLATELET COUNT 153 x10e3/uL (140-360); RED BLOOD COUNT 4.55 x10e6/uL (4.3-5.7); RED CELL DISTRIBUTION WIDTH 15.2 % (11.7-14.4)
[2019-09-04 04:38] LABS: ANION GAP 18.1 mmol/L (8-16); BLOOD UREA NITROGEN 14 mg/dL (7-26); BUN/CREATININE RATIO 12 (6-25); CALCIUM 9.6 mg/dL (8.4-10.2); CARBON DIOXIDE 16 mmol/L (22-29); CHLORIDE 107 mmol/L (98-107); CREATININE, SERUM 1.17 mg/dL (0.72-1.25); EST GLOMERULAR FILTRATION RATE > 60 ML/MIN (60-); GLUCOSE 243 mg/dL (74-118); MAGNESIUM 1.6 MG/DL (1.3-2.1); POTASSIUM 4.1 mmol/L (3.5-5.1); SODIUM 137 mmol/L (136-145)
[2019-09-04] MEDS: LEVOTHYROXINE SODIUM 75 MCG TAB PO SCH (05:09)
--- NOTE | 2019-09-04 05:35 | NUR ---
Patient resting quitly at this time. Continue monitor.
[2019-09-04] MEDS: NPH, HUMAN INSULIN ISOPHANE 100 UNIT/1 ML 3ML VIAL SQ SCH (08:02)
[2019-09-04] MEDS: INSULIN REGULAR, HUMAN 100 UNIT/1 ML 3ML VIAL SQ SCH (08:03)
[2019-09-04] MEDS: ASPIRIN 81 MG ENTERIC COATED PO SCH (08:26)
[2019-09-04] MEDS: QUETIAPINE FUMARATE 100 MG TAB PO SCH ×2 (08:26→21:27)
[2019-09-04] MEDS: PANTOPRAZOLE SOD 40 MG TABEC PO SCH (08:26)
[2019-09-04] MEDS: DOCUSATE SODIUM 100 MG CAP PO SCH ×3 (08:26→21:27)
[2019-09-04] MEDS: TAMSULOSIN HCL 0.4 MG CAP PO SCH (08:26)
[2019-09-04] MEDS: MEMANTINE 10 MG TAB PO SCH ×2 (08:26→17:21)
[2019-09-04] MEDS: DONEPEZIL HCL 5 MG TAB PO SCH (08:26)
[2019-09-04] MEDS: POLYETHYLENE GLYCOL 3350 17 GM PACK PO SCH ×2 (08:26→17:21)
[2019-09-04] MEDS: LOSARTAN POTASSIUM 100 MG TAB PO SCH (08:26)
[2019-09-04] MEDS: TICAGRELOR 90 MG TABLET PO SCH ×2 (08:26→17:21)
[2019-09-04] MEDS: BUPROPION HCL 150 MG TABCR PO SCH (08:26)
[2019-09-04] MEDS: AMLODIPINE BESYLATE 5 MG TAB PO SCH (08:26)
[2019-09-04] MEDS: METOPROLOL SUCCINATE 25 MG TAB XL PO SCH (08:27)
[2019-09-04] MEDS: FENOFIBRATE 160 MG TAB PO SCH (09:00)
[2019-09-04] MEDS ORDERED: DEXTROSE 50% SYRINGE 50 ML IV PRN (10:45)
[2019-09-04] MEDS: INSULIN LISPRO 100 UNIT/1 ML 3ML VIAL SQ SCH ×5 (11:46→21:00)
--- NOTE | 2019-09-04 12:57 | Progress Note ---
DATE: 09/04/2019 Cardiology Progress Note SUBJECTIVE: The patient reports he is just unhappy today. He denies any chest pain. OBJECTIVE: VITAL SIGNS: Temperature 96.3, pulse 59, respiratory rate 22, blood pressure 131/60, and oxygen saturation 94% on room air. GENERAL: Alert and oriented x3, resting in bed, does not appear to be in acute distress. NECK: Supple. LUNGS: Diminished breath sounds throughout. No crackles. No wheezing. No rhonchi. CARDIOVASCULAR: Normal rate and rhythm. Normal S1, S2. No murmurs, no gallops. ABDOMEN: Rounded, soft, and nontender. EXTREMITIES: Lower extremity trace edema bilaterally. CARDIOVASCULAR MEDICATIONS: 1. Levothyroxine 75 mcg p.o. daily. 2. Atorvastatin 20 p.o. at bedtime. 3. Metoprolol 50 p.o. daily. 4. Aspirin 81 mg p.o. daily. 5. Losartan 50 mg p.o. daily. 6. Amlodipine 5 mg p.o. daily. LABORATORY DATA: WBCs 4.91, hemoglobin 4.55, hematocrit 12.6, and platelets 153. Sodium 137, potassium 4.1, BUN 14, and creatinine 1.17. TELEMETRY: Sinus rhythm. IMPRESSION: 1. Coronary artery disease, status post left anterior descending and circumflex percutaneous coronary intervention on the 01 September 2019. 2. Chest pain with atypical and typical features, which is now resolved. 3. Hypertension. 4. Hyperlipidemia. 5. Diabetes mellitus. 6. Morbid obesity. PLAN: Continue the above-listed cardiac medication. In addition, add Brilinta. Continue to monitor on telemetry. The patient will need close followup with Cardiology. We will continue to follow this patient. Dictated by Francisca Goldstein NP MD YAMILA Herrmann/HAN /[id number]
--- NOTE | 2019-09-04 19:53 | NUR ---
SBAR report received at bedside, patient seen awake alert, family at bedside, no distress, denies chest pain, bed in lowest position, skin warm dry, call light within reach, will continue to monitor, telemetry in place
[2019-09-04] MEDS: ATORVASTATIN 20 MG TAB PO SCH (21:27)
[2019-09-05] VITALS (7 sets, daily range): BP systolic 136–161; BP diastolic 69–82
[2019-09-05] MEDS: LEVOTHYROXINE SODIUM 75 MCG TAB PO SCH (05:27)
[2019-09-05] MEDS: INSULIN LISPRO 100 UNIT/1 ML 3ML VIAL SQ SCH ×3 (07:30→12:10)
[2019-09-05] MEDS: FENOFIBRATE 160 MG TAB PO SCH (09:00)
[2019-09-05] MEDS: TICAGRELOR 90 MG TABLET PO SCH (09:06)
[2019-09-05] MEDS: LOSARTAN POTASSIUM 100 MG TAB PO SCH (09:06)
[2019-09-05] MEDS: DONEPEZIL HCL 5 MG TAB PO SCH (09:06)
[2019-09-05] MEDS: TAMSULOSIN HCL 0.4 MG CAP PO SCH (09:06)
[2019-09-05] MEDS: DOCUSATE SODIUM 100 MG CAP PO SCH (09:06)
[2019-09-05] MEDS: ASPIRIN 81 MG ENTERIC COATED PO SCH (09:06)
[2019-09-05] MEDS: PANTOPRAZOLE SOD 40 MG TABEC PO SCH (09:07)
[2019-09-05] MEDS: AMLODIPINE BESYLATE 5 MG TAB PO SCH (09:07)
[2019-09-05] MEDS: MEMANTINE 10 MG TAB PO SCH (09:07)
[2019-09-05] MEDS: POLYETHYLENE GLYCOL 3350 17 GM PACK PO SCH (09:07)
[2019-09-05] MEDS: METOPROLOL SUCCINATE 25 MG TAB XL PO SCH (09:07)
[2019-09-05] MEDS: QUETIAPINE FUMARATE 100 MG TAB PO SCH (09:07)
[2019-09-05] MEDS: BUPROPION HCL 150 MG TABCR PO SCH (09:07)
[2019-09-05] MEDS: LORAZEPAM INJ 2 MG/ML VIAL IV PRN (11:05)
--- NOTE | 2019-09-05 13:20 | NUR ---
[facility]AC[facility] DISCHARGE INFORMATION PATIENT [facility] BEEN [facility] ADDRESS: [id number] MD: DMITRIY ROOM: [id number] NURSE CALL REPORT TO: [phone] IMM SIGNED AND OBTAINED (if applicable): THE FOLLOWING DOCUMENTS MUST ACCOMPANY PATIENT FOR TRANSFER: COPIED CHART: YES
--- NOTE | 2019-09-05 13:50 | NUR ---
Called report to [facility] and given to Juliana Driscoll LVN of patient's status.
--- NOTE | 2019-09-05 14:31 | NUR ---
WOUND CARE CONSULT 74 YO MALE HX CHEST PAIN VALERIE 15 ON MODERATE PUP STATUS AND INTERVENTIONS AND ALTERNATING PRESSURE MATTRESS LABS: WBC- 4.91,HGB-12.6, GLUCOSE - 120 SKIN ASSESSMENT COMPLETE PATIENT PRESENTS WITH NEWLY CLOSED AREA PATIENT PREVIOUSLY PRESENTED WITH R/T MOISTURE AND LOOSE STOOL AREA IS NO LONGER OPEN MEASURES .5CMX .5CM RECOMMENDATIONS : NURSING TO CONTINUE TO MAINTAIN MODERATE PUP STATUS AND INTERVENTIONS NURSING TO CONTINUE TO ASSIST PATIENT UP FOR MEALS AND MUCH TOLERATED NURSING TO MAINTAIN PATIENT BALJIT AREA AND BUTTOCKS CLEAN AND DRY NURSING TO APPLY DAILY VENELEX OINTMENT AND PLACE ALLEVYN FOAM OVER HEALING PARTIAL THICKNESS AREA NURSING TO APPLY REMEDY BARRIER PASTE ONLY WHEN PATIENT IS EXPERIENCING IRRITATION RELATED TO LOOSE STOOL Addendum: 09/05/19 at 1440 by Bob Arvizu RN Amended: Links added.
--- NOTE | 2019-09-05 15:39 | NUR ---
Left hand IV discontinued. No signs of infiltration noted. 2x2 gauze and tape placed. Taken via stretcher by EMS. AAOX3 to time, person, place. Respirations even and unlabored. Denies pain. Transfer package given to EMS. All personal belongings taken with patient.
[2019-09-05] MEDS ORDERED: NPH, HUMAN INSULIN ISOPHANE 100 UNIT/1 ML 3ML VIAL SQ SCH (17:00)
--- NOTE | 2019-09-06 05:21 | Discharge Summary ---
ADMISSION DIAGNOSES: Chest pain, coronary artery disease, hypertension, hyperlipidemia, dementia, type 2 diabetes, bipolar, hypothyroidism. DISCHARGE DIAGNOSES: Chest pain, coronary artery disease, hypertension, hyperlipidemia, dementia, type 2 diabetes, bipolar, hypothyroidism, PCI to the LAD and circumflex. HISTORY: Hypertension, hyperlipidemia, hypothyroidism, BPH, dementia, type 2 diabetes, CAD with PCI to the LAD, RCA, circumflex, bipolar, CVA. SURGICAL HISTORY: Anal fistula repair, tonsillectomy, left thumb surgery, cholecystectomy, right lower extremity fracture surgery. FAMILY HISTORY: The patient's mother had diabetes and cancer. SOCIAL HISTORY: Noncontributory. HOSPITAL COURSE: A 74-year-old male sent from the care home due to intermittent left-sided chest pain that started last month. After the heart catheterization, the pain improved, but never went away. He says the pain radiated to his back and he feels a tightness in his left arm. The patient had a left heart catheterization on 08/17/2019 with a PCI to the LAD and RCA. On admission, troponins were negative x3. Chest x-ray showed pulmonary edema. The patient [facility] [place] [facility] with stents to the LAD and circumflex. The patient tolerated the procedure well. Per Physical Therapy recommendation, the patient will need SNF placement. He will discharge back to [facility]. The patient understands discharge instructions and agrees to plan. He will continue all same hospital medications including the anti-platelet therapy. Dictated by Gilda Castro NP MD ZACARIAS Burk/HAN /[id number]
[2019-09-06] MEDS ORDERED: BALSAM PERU/CASTOR OIL 60 GM OINT...G. TP SCH (09:00)
--- NOTE | 2019-09-07 15:20 | Operative Report ---
DATE OF PROCEDURE: 09/01/2019 SURGEON: Boston Boyd DO PROCEDURES PERFORMED: 1. Conscious sedation, 45 minutes. 2. Selective coronary angiography x2. 3. Left heart catheterization. 4. Percutaneous transluminal coronary angioplasty and drug-eluting stent placement to the mid left anterior descending coronary artery. 5. Percutaneous transluminal coronary angioplasty and drug-eluting stent placement to the left circumflex coronary artery. PREPROCEDURE DIAGNOSIS: Coronary artery disease with unstable angina. POSTPROCEDURE DIAGNOSIS: Coronary artery disease with unstable angina. ESTIMATED BLOOD LOSS: Less than 20 mL. SPECIMENS REMOVED: None. PROCEDURE IN DETAIL: After informed consent was obtained, the patient was brought to the cardiac catheterization laboratory in a fasting and nonsedated state. His right wrist was prepped and draped in usual sterile fashion. A 2% lidocaine was instilled over the right wrist for local anesthesia. Using a micropuncture needle, the right radial artery was accessed via modified Seldinger technique and a 6-Greek slender sheath was placed. Next, diagnostic coronary angiography was performed x2. It was performed using a TIG catheter. Next, left main was cannulated with a 6-Greek XB LAD 3.5 guide catheter. Diagnostic imaging revealed a patent proximal to mid and mid to distal stent. The area between these two stents had a 70% stenosis. The lesion was crossed with a run-through wire, then pre-dilated with a 2.5 balloon. This area was stented in an overlapping fashion with the previously placed stents with a 3 x 24 Synergy drug-eluting stent. Next, this wire was used to cross into the circumflex. There were two 70% discrete lesions, both of which were pre-dilated. The distal portion was stented with a 3.5 x 16 drug-eluting stent. The midportion was stented with a 3.5 x 20. The proximal portion was then stented with a 3.5 x 12 stent. Final angiography revealed excellent stent apposition with brisk SOTO-3 flow distally. Left heart catheterization was then performed. Right coronary angiography was performed. Everything was subsequently removed from the body. The patient tolerated the procedure well with no immediate complications and was transferred to room in stable condition. PROCEDURAL FINDINGS: 1. Left main coronary artery is patent. 2. Proximal LAD is patent. There is a mid and distal stent present, which are patent. The midportion in between these two stents have a 70% stenosis. 3. Left circumflex coronary artery provides one obtuse marginal vessel. The circumflex itself has two discrete 70% lesions. 4. Right coronary artery has two patent stents and provides the PDA. 5. Left ventricular end-diastolic pressure is 16 mmHg. IMPRESSION: Status post percutaneous coronary intervention of the left anterior descending and left circumflex coronary arteries. RECOMMENDATIONS: Continue dual antiplatelet therapy. DO TATE Escobar/MODL /[id number]
== END 2019-09-05 15:40 ==
LOC: ER 16:17 → ERHOLD 18:42 → MED/SURG3 20:40
PROVIDERS: ADMIT Internal Medicine; ATTEND Internal Medicine
DX: I25.10 Atherosclerotic heart disease of native coronary artery without angina pectoris (principal); I10 Essential (primary) hypertension; E78.5 Hyperlipidemia, unspecified; E11.9 Type 2 diabetes mellitus without complications; F03.90 Unspecified dementia, unspecified severity, without behavioral disturbance, psychotic disturbance, mood disturbance, and anxiety; E03.9 Hypothyroidism, unspecified; Z86.73 Personal history of transient ischemic attack (TIA), and cerebral infarction without residual deficits; F31.9 Bipolar disorder, unspecified
CPT/HCPCS: 93458; C9600; 36415; 71045; 80048; 80053; 80061; 82550; 82553; 82948; 83735; 83880; 84100; 84484; 85025; 92928; 92929; 93005; 96372; 97139; 99152; 99153; 99284; C1725; C1874; C1887; G0378; J1644; J1817; J1940; J2001; J2060; J2250; J3010; J7030; Q9967

== ENCOUNTER 2021-01-14 18:02 | Inpatient (IN) | payer MEDICARE, OTHER ==
[~2021-01-14] VITALS: Ht 172.7 cm; Wt 126.6 kg
[~2021-01-14 18:02] MED LIST changes: +ASPIRIN EC81 MG PO; +ATIVAN1 MG PO; +BRILINTA90 MG PO; +LIPITOR20 MG PO; +MIRALAX17 GM PO; +TYLENOL WITH C1 EACH PO
[2021-01-14] MEDS ORDERED: SODIUM CHLORIDE 0.9% 1000ML 1,000 ML IV STA (18:30)
[2021-01-14] MEDS ORDERED: ASPIRIN 81 MG CHEW TAB PO ONE (18:30)
[2021-01-14 18:53] LABS: BASOPHILS % 0.3 % (0.0-1.0); EOSINOPHILS # (AUTO) 0.1 (0.0-0.4); EOSINOPHILS % 1.3 % (0.0-6.0); HEMATOCRIT 33.8 % (38.2-49.6); HEMOGLOBIN 11.4 g/dL (14.0-18.0); LYMPHOCYTES # (AUTO) 0.7 (1.0-3.2); LYMPHOCYTES % 11.6 % (18.0-39.1); MEAN CORPUSCULAR HEMOGLOBIN 28.6 pg (28-32); MEAN CORPUSCULAR HGB CONC 33.7 g/dL (31-35); MEAN CORPUSCULAR VOLUME 84.7 fL (81-99); MONOCYTES # (AUTO) 0.7 (0.2-0.8); NEUTROPHILS # (AUTO) 4.7 (2.1-6.9); PLATELET COUNT 203 x10e3/uL (140-360); RED BLOOD COUNT 3.99 x10e6/uL (4.3-5.7); RED CELL DISTRIBUTION WIDTH 15.9 % (11.7-14.4)
[2021-01-14 19:14] LABS: ALBUMIN 4.1 g/dL (3.5-5.0); ALBUMIN/GLOBULIN RATIO 1.5 (0.8-2.0); ANION GAP 21.1 mmol/L (8-16); CREATININE, SERUM 4.7 mg/dL (0.72-1.25); POTASSIUM 3.1 mmol/L (3.5-5.1)
[2021-01-14 19:20] LABS: CREATINE KINASE MB 2.2 ng/mL (0-5.0)
[2021-01-14 22:37] LABS: CLARITY,URINE CLEAR (CLEAR); COLOR,URINE YELLOW (YELLOW); KETONES,URINE NEGATIVE (NEGATIVE); LEUKOCYTE ESTERASE ,URINE NEGATIVE (NEGATIVE); NITRITE,URINE NEGATIVE (NEGATIVE); PROTEIN,URINE DIPSTICK NEGATIVE (NEGATIVE); URINE UROBILINOGEN 0.2 mg/dL (0.2 - 1)
[2021-01-14 22:46] LABS: BACTERIA,URINE FEW /HPF; EPITHELIAL CELLS,URINE RARE /LPF; RBC,URINE 0-5 /HPF (0-5); WBC,URINE (MAN) 0-5 /HPF (0-5)
[2021-01-14] MEDS ORDERED: ONDANSETRON HCL INJ 2MG/ML 2ML 2 MG/ML VIAL IV PRN (23:30)
[2021-01-14] MEDS ORDERED: ACETAMINOPHEN 325 MG TAB PO PRN (23:30)
[2021-01-14] MEDS ORDERED: HYDRALAZINE HCL 20 MG/ML VIAL IV PRN (23:30)
[2021-01-15 06:15] LABS: BASOPHILS % 0.7 % (0.0-1.0); EOSINOPHILS # (AUTO) 0.2 (0.0-0.4); EOSINOPHILS % 2.5 % (0.0-6.0); HEMATOCRIT 36.3 % (38.2-49.6); HEMOGLOBIN 11.8 g/dL (14.0-18.0); LYMPHOCYTES # (AUTO) 1.1 (1.0-3.2); LYMPHOCYTES % 17.6 % (18.0-39.1); MEAN CORPUSCULAR HGB CONC 32.5 g/dL (31-35); MEAN CORPUSCULAR VOLUME 86.2 fL (81-99); MONOCYTES # (AUTO) 0.7 (0.2-0.8); MONOCYTES % 11.1 % (4.4-11.3); NEUTROPHILS # (AUTO) 4.1 (2.1-6.9); PLATELET COUNT 166 x10e3/uL (140-360); RED BLOOD COUNT 4.21 x10e6/uL (4.3-5.7); RED CELL DISTRIBUTION WIDTH 15.9 % (11.7-14.4)
[2021-01-15 06:36] LABS: ALBUMIN 4.3 g/dL (3.5-5.0); ALBUMIN/GLOBULIN RATIO 1.5 (0.8-2.0); ANION GAP 21.6 mmol/L (8-16); CALCIUM 10.2 mg/dL (8.4-10.2); CREATININE, SERUM 4.6 mg/dL (0.72-1.25)
[2021-01-15 06:38] LABS: POTASSIUM 2.6 mmol/L (3.5-5.1)
[2021-01-15 07:01] LABS: CREATINE KINASE MB 4.1 ng/mL (0-5.0)
[2021-01-15] MEDS ORDERED: ISOSORBIDE MONO30 MG PO (08:27)
[2021-01-15] MEDS ORDERED: TORSEMIDE100 MG PO (08:27)
[2021-01-15] MEDS ORDERED: K-TAB ER8 MEQ PO (08:27)
[2021-01-15] MEDS ORDERED: QUETIAPINE FUM300 MG PO (08:27)
[2021-01-15] MEDS ORDERED: ROSUVASTATIN CAL5 MG PO (08:27)
[2021-01-15] MEDS ORDERED: GABAPENTIN300 MG PO (08:27)
[2021-01-15] MEDS ORDERED: LEVOTHYROXINE88 MCG PO (08:27)
[2021-01-15] MEDS ORDERED: DONEPEZIL HCL5 MG PO (08:27)
[2021-01-15] MEDS ORDERED: FUROSEMIDE20 MG PO (08:27)
[2021-01-15] MEDS ORDERED: METOLAZONE2.5 MG PO (08:27)
[2021-01-15] MEDS ORDERED: MAGNESIUM SULFATE 2GM/50ML 50 ML IV ONE (09:15)
[2021-01-15] MEDS ORDERED: POTASSIUM CHLORIDE 20MEQ/100ML 200 ML IV ONE (09:15)
[2021-01-15] MEDS: FAMOTIDINE 20 MG TAB PO SCH (10:08)
[2021-01-15] MEDS ORDERED: SODIUM CHLORIDE 0.9% 100 ML ONE (10:43)
[2021-01-15] MEDS: SODIUM CHLORIDE 0.9% 1000ML 1,000 ML IV SCH ×2 (12:07→22:23)
[2021-01-15] MEDS ORDERED: DEXTROSE 50% SYRINGE 50 ML IV PRN (14:30)
[2021-01-15 14:46] LABS: CREATINE KINASE MB 4.8 ng/mL (0-5.0)
[2021-01-15] MEDS: GABAPENTIN 300 MG CAP PO SCH (15:28)
[2021-01-15 17:28] VITALS: BP 144/72
[2021-01-15 17:38] VITALS: BP 144/72
[2021-01-15] MEDS: INSULIN LISPRO 100 UNIT/1 ML 3ML VIAL SQ SCH ×2 (17:46→21:03)
[2021-01-15 20:00] VITALS: BP 144/72
[2021-01-15 20:58] VITALS: BP 131/62
[2021-01-15 21:01] VITALS: BP 131/42
[2021-01-15] MEDS ORDERED: TYLENOL # 31 EA (22:38)
[2021-01-15] MEDS: ACETAMINOPHEN/CODEINE 300MG - 30MG TAB PO PRN (22:43)
[2021-01-16] VITALS (8 sets, daily range): BP systolic 138–158; BP diastolic 62–93
[2021-01-16] MEDS: LEVOTHYROXINE SODIUM 88 MCG TAB PO SCH (05:12)
[2021-01-16 06:14] LABS: ALBUMIN 4.1 g/dL (3.5-5.0); ALBUMIN/GLOBULIN RATIO 1.3 (0.8-2.0); ANION GAP 21.2 mmol/L (8-16); CALCIUM 10.3 mg/dL (8.4-10.2); CREATININE, SERUM 3.3 mg/dL (0.72-1.25); POTASSIUM 3.2 mmol/L (3.5-5.1)
[2021-01-16] MEDS: INSULIN LISPRO 100 UNIT/1 ML 3ML VIAL SQ SCH ×4 (07:30→20:55)
[2021-01-16] MEDS: GABAPENTIN 300 MG CAP PO SCH ×2 (08:35→16:25)
[2021-01-16] MEDS: FAMOTIDINE 20 MG TAB PO SCH (08:35)
[2021-01-16] MEDS: TAMSULOSIN HCL 0.4 MG CAP PO SCH (08:35)
[2021-01-16] MEDS: SODIUM CHLORIDE 0.9% 1000ML 1,000 ML IV SCH ×2 (08:35→16:26)
[2021-01-16] MEDS: PANTOPRAZOLE SOD 40 MG TABEC PO SCH (08:35)
[2021-01-16] MEDS: ACETAMINOPHEN/CODEINE 300MG - 30MG TAB PO PRN ×2 (11:01→23:13)
[2021-01-16] MEDS ORDERED: POTASSIUM CHLORIDE 20 MEQ TAB CR PO ONE (15:00)
[2021-01-16] MEDS: QUETIAPINE FUMARATE 100 MG TAB PO SCH (20:54)
[2021-01-16] MEDS ORDERED: QUETIAPINE FUMARATE PO SCH (21:00)
[2021-01-17] VITALS (8 sets, daily range): BP systolic 118–160; BP diastolic 71–87
[2021-01-17] MEDS: SODIUM CHLORIDE 0.9% 1000ML 1,000 ML IV SCH ×2 (04:16→16:26)
[2021-01-17 04:56] LABS: EOSINOPHILS # (AUTO) 0.1 (0.0-0.4); EOSINOPHILS % 3.4 % (0.0-6.0); HEMATOCRIT 36.2 % (38.2-49.6); HEMOGLOBIN 11.2 g/dL (14.0-18.0); LYMPHOCYTES # (AUTO) 0.9 (1.0-3.2); LYMPHOCYTES % 24.7 % (18.0-39.1); MEAN CORPUSCULAR HEMOGLOBIN 27.9 pg (28-32); MEAN CORPUSCULAR HGB CONC 30.9 g/dL (31-35); MONOCYTES # (AUTO) 0.7 (0.2-0.8); MONOCYTES % 19.2 % (4.4-11.3); NEUTROPHILS # (AUTO) 1.9 (2.1-6.9); NEUTROPHILS % 50.7 % (38.7-80.0); PLATELET COUNT 128 x10e3/uL (140-360); RED BLOOD COUNT 4.01 x10e6/uL (4.3-5.7); RED CELL DISTRIBUTION WIDTH 15.8 % (11.7-14.4)
[2021-01-17 05:16] LABS: MEAN CORPUSCULAR VOLUME 90.3 fL (81-99)
[2021-01-17 05:18] LABS: ANION GAP 15.1 mmol/L (8-16); CALCIUM 9.5 mg/dL (8.4-10.2); CREATININE, SERUM 2.16 mg/dL (0.72-1.25); POTASSIUM 3.1 mmol/L (3.5-5.1)
[2021-01-17] MEDS: LEVOTHYROXINE SODIUM 88 MCG TAB PO SCH (05:56)
[2021-01-17] MEDS: FAMOTIDINE 20 MG TAB PO SCH (07:59)
[2021-01-17] MEDS: TAMSULOSIN HCL 0.4 MG CAP PO SCH (07:59)
[2021-01-17] MEDS: PANTOPRAZOLE SOD 40 MG TABEC PO SCH (07:59)
[2021-01-17] MEDS: GABAPENTIN 300 MG CAP PO SCH ×2 (07:59→16:26)
[2021-01-17] MEDS: INSULIN LISPRO 100 UNIT/1 ML 3ML VIAL SQ SCH ×4 (08:00→22:37)
[2021-01-17] MEDS ORDERED: GABAPENTIN 300 MG CAP PO SCH (09:00)
[2021-01-17] MEDS: POLYETHYLENE GLYCOL 3350 17 GM PACK PO PRN ×2 (09:14→23:40)
[2021-01-17] MEDS ORDERED: QUETIAPINE FUMARATE 100 MG TAB PO SCH (09:30)
[2021-01-17] MEDS: DONEPEZIL HCL 5 MG TAB PO SCH (09:47)
[2021-01-17] MEDS: MEMANTINE 10 MG TAB PO SCH ×2 (09:47→16:26)
[2021-01-17] MEDS: BUPROPION HCL 150 MG TABCR PO SCH (09:47)
[2021-01-17] MEDS: NPH, HUMAN INSULIN ISOPHANE 100 UNIT/1 ML 3ML VIAL SQ SCH ×2 (09:48→16:29)
[2021-01-17] MEDS ORDERED: POTASSIUM CHLORIDE 20MEQ/100ML 200 ML IV ONE (10:30)
[2021-01-17] MEDS: HOME MEDICATION--PATIENTS OWN PO SCH (21:00)
[2021-01-17] MEDS: QUETIAPINE FUMARATE 100 MG TAB PO SCH (22:37)
[2021-01-17] MEDS: ACETAMINOPHEN/CODEINE 300MG - 30MG TAB PO PRN (22:37)
[2021-01-18] VITALS (8 sets, daily range): BP systolic 121–161; BP diastolic 62–85
[2021-01-18] MEDS: SODIUM CHLORIDE 0.9% 1000ML 1,000 ML IV SCH ×2 (03:52→22:20)
[2021-01-18 05:29] LABS: BASOPHILS % 0.9 % (0.0-1.0); EOSINOPHILS # (AUTO) 0.1 (0.0-0.4); EOSINOPHILS % 3.4 % (0.0-6.0); HEMATOCRIT 32.1 % (38.2-49.6); HEMOGLOBIN 10.5 g/dL (14.0-18.0); LYMPHOCYTES # (AUTO) 0.9 (1.0-3.2); MEAN CORPUSCULAR HEMOGLOBIN 28.5 pg (28-32); MEAN CORPUSCULAR HGB CONC 32.7 g/dL (31-35); MONOCYTES # (AUTO) 0.4 (0.2-0.8); MONOCYTES % 12.5 % (4.4-11.3); NEUTROPHILS # (AUTO) 1.8 (2.1-6.9); NEUTROPHILS % 55.7 % (38.7-80.0); PLATELET COUNT 146 x10e3/uL (140-360); RED BLOOD COUNT 3.69 x10e6/uL (4.3-5.7); RED CELL DISTRIBUTION WIDTH 15.4 % (11.7-14.4)
[2021-01-18 05:52] LABS: ANION GAP 14.2 mmol/L (8-16); CALCIUM 9.1 mg/dL (8.4-10.2); CREATININE, SERUM 1.56 mg/dL (0.72-1.25); POTASSIUM 3.2 mmol/L (3.5-5.1)
[2021-01-18] MEDS: LEVOTHYROXINE SODIUM 88 MCG TAB PO SCH (06:10)
[2021-01-18] MEDS: INSULIN LISPRO 100 UNIT/1 ML 3ML VIAL SQ SCH ×4 (07:30→20:34)
[2021-01-18] MEDS: GABAPENTIN 300 MG CAP PO SCH ×2 (08:51→17:00)
[2021-01-18] MEDS: TAMSULOSIN HCL 0.4 MG CAP PO SCH (08:51)
[2021-01-18] MEDS: DONEPEZIL HCL 5 MG TAB PO SCH (08:51)
[2021-01-18] MEDS: PANTOPRAZOLE SOD 40 MG TABEC PO SCH (08:51)
[2021-01-18] MEDS: MEMANTINE 10 MG TAB PO SCH ×2 (08:51→17:00)
[2021-01-18] MEDS: BUPROPION HCL 150 MG TABCR PO SCH (08:51)
[2021-01-18] MEDS: FAMOTIDINE 20 MG TAB PO SCH (08:51)
[2021-01-18] MEDS: NPH, HUMAN INSULIN ISOPHANE 100 UNIT/1 ML 3ML VIAL SQ SCH ×3 (09:00→20:34)
[2021-01-18] MEDS ORDERED: POTASSIUM CHLORIDE 20 MEQ TAB CR PO ONE ×2 (10:15→14:00)
[2021-01-18] MEDS ORDERED: ONDANSETRON HCL 4 MG ORAL DISINTEGRATING TAB PO PRN (10:45)
[2021-01-18] MEDS: POLYETHYLENE GLYCOL 3350 17 GM PACK PO PRN (13:57)
[2021-01-18] MEDS: QUETIAPINE FUMARATE 100 MG TAB PO SCH (21:00)
[2021-01-18] MEDS: HOME MEDICATION--PATIENTS OWN PO SCH (21:00)
[2021-01-18] MEDS: ACETAMINOPHEN/CODEINE 300MG - 30MG TAB PO PRN (22:21)
[2021-01-19] VITALS (8 sets, daily range): BP systolic 134–168; BP diastolic 56–82
[2021-01-19] MEDS: LEVOTHYROXINE SODIUM 88 MCG TAB PO SCH (05:40)
[2021-01-19 06:55] LABS: ANION GAP 13.5 mmol/L (8-16); CALCIUM 8.6 mg/dL (8.4-10.2); CREATININE, SERUM 1.47 mg/dL (0.72-1.25); POTASSIUM 3.5 mmol/L (3.5-5.1)
[2021-01-19] MEDS: INSULIN LISPRO 100 UNIT/1 ML 3ML VIAL SQ SCH ×4 (07:30→20:24)
[2021-01-19] MEDS: NPH, HUMAN INSULIN ISOPHANE 100 UNIT/1 ML 3ML VIAL SQ SCH ×2 (09:00→20:23)
[2021-01-19] MEDS: BUPROPION HCL 150 MG TABCR PO SCH (09:00)
[2021-01-19] MEDS: GABAPENTIN 300 MG CAP PO SCH ×2 (09:00→17:00)
[2021-01-19] MEDS: PANTOPRAZOLE SOD 40 MG TABEC PO SCH (09:00)
[2021-01-19] MEDS: FAMOTIDINE 20 MG TAB PO SCH (09:00)
[2021-01-19] MEDS: MEMANTINE 10 MG TAB PO SCH ×2 (09:00→17:00)
[2021-01-19] MEDS: TAMSULOSIN HCL 0.4 MG CAP PO SCH (09:00)
[2021-01-19] MEDS: DONEPEZIL HCL 5 MG TAB PO SCH (09:00)
[2021-01-19] MEDS: POLYETHYLENE GLYCOL 3350 17 GM PACK PO PRN ×2 (09:30→18:27)
[2021-01-19] MEDS: SODIUM CHLORIDE 0.9% 1000ML 1,000 ML IV SCH (10:00)
[2021-01-19] MEDS: ACETAMINOPHEN/CODEINE 300MG - 30MG TAB PO PRN ×2 (10:27→22:30)
[2021-01-19] MEDS: HOME MEDICATION--PATIENTS OWN PO SCH (20:22)
[2021-01-19] MEDS: QUETIAPINE FUMARATE 100 MG TAB PO SCH (21:57)
[2021-01-20 05:26] LABS: ANION GAP 13.4 mmol/L (8-16); CALCIUM 8.2 mg/dL (8.4-10.2); CREATININE, SERUM 1.37 mg/dL (0.72-1.25); POTASSIUM 3.4 mmol/L (3.5-5.1)
[2021-01-20] MEDS: LEVOTHYROXINE SODIUM 88 MCG TAB PO SCH (06:00)
[2021-01-20] MEDS: INSULIN LISPRO 100 UNIT/1 ML 3ML VIAL SQ SCH ×4 (07:30→21:00)
[2021-01-20] MEDS: POLYETHYLENE GLYCOL 3350 17 GM PACK PO PRN (08:35)
[2021-01-20] MEDS: PANTOPRAZOLE SOD 40 MG TABEC PO SCH (09:00)
[2021-01-20] MEDS: FAMOTIDINE 20 MG TAB PO SCH (09:00)
[2021-01-20] MEDS: MEMANTINE 10 MG TAB PO SCH ×2 (09:00→17:00)
[2021-01-20] MEDS: BUPROPION HCL 150 MG TABCR PO SCH (09:00)
[2021-01-20] MEDS: TAMSULOSIN HCL 0.4 MG CAP PO SCH (09:00)
[2021-01-20] MEDS: GABAPENTIN 300 MG CAP PO SCH ×2 (09:00→17:00)
[2021-01-20] MEDS: DONEPEZIL HCL 5 MG TAB PO SCH (09:00)
[2021-01-20] MEDS: NPH, HUMAN INSULIN ISOPHANE 100 UNIT/1 ML 3ML VIAL SQ SCH ×2 (09:00→21:00)
[2021-01-20] MEDS ORDERED: SOD PHOSPHATE/SOD BIPHOSPHATE ENEMA 132 ML BTL PR ONE (17:15)
[2021-01-20] MEDS: QUETIAPINE FUMARATE 100 MG TAB PO SCH ×2 (21:00→22:50)
[2021-01-20] MEDS: HOME MEDICATION--PATIENTS OWN PO SCH (21:04)
[2021-01-20] MEDS: ACETAMINOPHEN/CODEINE 300MG - 30MG TAB PO PRN (22:50)
[2021-01-21 04:00] VITALS: BP 150/67
[2021-01-21 05:21] LABS: ANION GAP 16.9 mmol/L (8-16); CALCIUM 8.3 mg/dL (8.4-10.2); CREATININE, SERUM 1.61 mg/dL (0.72-1.25); POTASSIUM 3.9 mmol/L (3.5-5.1)
[2021-01-21] MEDS: LEVOTHYROXINE SODIUM 88 MCG TAB PO SCH (05:57)
[2021-01-21] MEDS: INSULIN LISPRO 100 UNIT/1 ML 3ML VIAL SQ SCH (07:30)
[2021-01-21] MEDS: MEMANTINE 10 MG TAB PO SCH (08:20)
[2021-01-21] MEDS: NPH, HUMAN INSULIN ISOPHANE 100 UNIT/1 ML 3ML VIAL SQ SCH (08:20)
[2021-01-21] MEDS: TAMSULOSIN HCL 0.4 MG CAP PO SCH (08:20)
[2021-01-21] MEDS: DONEPEZIL HCL 5 MG TAB PO SCH (08:20)
[2021-01-21] MEDS: PANTOPRAZOLE SOD 40 MG TABEC PO SCH (08:21)
[2021-01-21] MEDS: GABAPENTIN 300 MG CAP PO SCH (08:21)
[2021-01-21] MEDS: BUPROPION HCL 150 MG TABCR PO SCH (08:21)
[2021-01-21] MEDS: FAMOTIDINE 20 MG TAB PO SCH (08:21)
== END 2021-01-21 18:15 | disposition home or self-care (01) | DRG 699 ==
LOC: ER 18:30 → ERHOLD 22:35 → MED/SURG 01-15 17:25
PROVIDERS: ADMIT Internal Medicine; ATTEND Internal Medicine
PROC: 02HV33Z Insertion of Infusion Device into Superior Vena Cava, Percutaneous Approach (ICD-10-PCS; principal; 2021-01-14)
DX: E11.22 Type 2 diabetes mellitus with diabetic chronic kidney disease (principal); I50.32 Chronic diastolic (congestive) heart failure; I13.0 Hypertensive heart and chronic kidney disease with heart failure and stage 1 through stage 4 chronic kidney disease, or unspecified chronic kidney disease; Z68.41 Body mass index [BMI] 40.0-44.9, adult; N17.9 Acute kidney failure, unspecified; E83.52 Hypercalcemia; Z95.0 Presence of cardiac pacemaker; I25.10 Atherosclerotic heart disease of native coronary artery without angina pectoris; Z98.61 Coronary angioplasty status; E87.6 Hypokalemia; J44.9 Chronic obstructive pulmonary disease, unspecified; E66.01 Morbid (severe) obesity due to excess calories; F03.90 Unspecified dementia, unspecified severity, without behavioral disturbance, psychotic disturbance, mood disturbance, and anxiety; F31.9 Bipolar disorder, unspecified; N18.32 Chronic kidney disease, stage 3b; Z79.899 Other long term (current) drug therapy; E03.9 Hypothyroidism, unspecified
CPT/HCPCS: 36415; 51700; 70450; 71045; 76770; 80048; 80053; 81001; 82550; 82553; 82948; 83036; 83880; 83970; 84443; 84484; 85025; 93005; 93880; 96372; 97139; 99251; 99284; J3475; J3480; J7030; J7050; U0002

== ENCOUNTER 2021-04-20 04:23 | Emergency (ER) | payer MEDICARE ==
[~2021-04-20] VITALS: Ht 172.7 cm; Wt 126.6 kg
[~2021-04-20 04:23] MED LIST changes: +DONEPEZIL HCL5 MG PO; +FUROSEMIDE20 MG PO; +GABAPENTIN300 MG PO; +ISOSORBIDE MONO30 MG PO; +K-TAB ER8 MEQ PO; +LEVOTHYROXINE88 MCG PO; +METOLAZONE2.5 MG PO; +QUETIAPINE FUM300 MG PO; +ROSUVASTATIN CAL5 MG PO; +TORSEMIDE100 MG PO; +TYLENOL # 31 EA
[2021-04-20] MEDS ORDERED: ONDANSETRON HCL INJ 2MG/ML 2ML 2 MG/ML VIAL IV STA ×2 (04:35→07:50)
[2021-04-20 05:14] LABS: BASOPHILS % 0.3 % (0.0-1.0); HEMATOCRIT 36.4 % (38.2-49.6); HEMOGLOBIN 10.9 g/dL (14.0-18.0); LYMPHOCYTES # (AUTO) 0.8 (1.0-3.2); MEAN CORPUSCULAR HEMOGLOBIN 26.5 pg (28-32); MEAN CORPUSCULAR HGB CONC 29.9 g/dL (31-35); MEAN CORPUSCULAR VOLUME 88.3 fL (81-99); MONOCYTES % 9.1 % (4.4-11.3); NEUTROPHILS # (AUTO) 8.8 (2.1-6.9); NEUTROPHILS % 82.6 % (38.7-80.0); PLATELET COUNT 416 x10e3/uL (140-360); RED BLOOD COUNT 4.12 x10e6/uL (4.3-5.7); RED CELL DISTRIBUTION WIDTH 19.1 % (11.7-14.4)
[2021-04-20 05:18] LABS: INR 1.17; PROTHROMBIN TIME 15.1 seconds (11.9-14.5)
[2021-04-20 05:19] LABS: PARTIAL THROMBOPLASTIN TIME 36.5 seconds (23.8-35.5)
[2021-04-20 05:27] LABS: ALBUMIN 3.4 g/dL (3.5-5.0); CALCIUM 9.2 mg/dL (8.4-10.2); CREATININE, SERUM 1.18 mg/dL (0.72-1.25)
[2021-04-20 05:34] LABS: CREATINE KINASE MB 2.1 ng/mL (0-5.0)
[2021-04-20 05:46] LABS: AMYLASE 47 U/L (25-125); LIPASE 28 U/L (8-78)
[2021-04-20 05:47] LABS: CLARITY,URINE CLEAR (CLEAR); COLOR,URINE STRAW (YELLOW); KETONES,URINE 2+ (NEGATIVE); LEUKOCYTE ESTERASE ,URINE NEGATIVE (NEGATIVE); NITRITE,URINE NEGATIVE (NEGATIVE); PROTEIN,URINE DIPSTICK NEGATIVE (NEGATIVE); URINE UROBILINOGEN 0.2 mg/dL (0.2 - 1)
[2021-04-20 06:03] LABS: BACTERIA,URINE RARE /HPF; WBC,URINE (MAN) 0-5 /HPF (0-5)
[2021-04-20] MEDS ORDERED: SODIUM CHLORIDE 0.9% 50ML 50 ML ONE (06:24)
[2021-04-20] MEDS ORDERED: IOPAMIDOL 370 MG/ML 200 ML INFUS..BTL INJ ONE (06:24)
[2021-04-20] MEDS ORDERED: MORPHINE SULFATE INJ 4 MG/ML INJ 1ML IV STA (07:50)
== END 2021-04-20 10:21 ==
LOC: ER 04:31
DX: R11.2 Nausea with vomiting, unspecified (principal); R10.11 Right upper quadrant pain; R10.31 Right lower quadrant pain; E11.65 Type 2 diabetes mellitus with hyperglycemia; E78.5 Hyperlipidemia, unspecified; J44.9 Chronic obstructive pulmonary disease, unspecified; K21.9 Gastro-esophageal reflux disease without esophagitis; Z95.810 Presence of automatic (implantable) cardiac defibrillator
CPT/HCPCS: 36415; 74177; 80053; 81001; 82150; 82550; 82553; 83690; 84484; 85025; 85610; 85730; 93005; 99285; J2270; J2405; Q9967

== ENCOUNTER 2021-07-21 21:33 | Inpatient (IN) | payer MEDICARE ==
[~2021-07-21] VITALS: Ht 172.7 cm; Wt 117.0 kg
[2021-07-21 22:35] LABS: BASOPHILS % 0.4 % (0.0-1.0); EOSINOPHILS # (AUTO) 0.3 (0.0-0.4); EOSINOPHILS % 2.8 % (0.0-6.0); HEMOGLOBIN 10.8 g/dL (14.0-18.0); LYMPHOCYTES # (AUTO) 0.8 (1.0-3.2); LYMPHOCYTES % 8.8 % (18.0-39.1); MEAN CORPUSCULAR HEMOGLOBIN 25.3 pg (28-32); MEAN CORPUSCULAR VOLUME 84.3 fL (81-99); MONOCYTES # (AUTO) 0.6 (0.2-0.8); MONOCYTES % 6.8 % (4.4-11.3); NEUTROPHILS # (AUTO) 7.5 (2.1-6.9); NEUTROPHILS % 80.7 % (38.7-80.0); PLATELET COUNT 257 x10e3/uL (140-360); RED BLOOD COUNT 4.27 x10e6/uL (4.3-5.7); RED CELL DISTRIBUTION WIDTH 17.3 % (11.7-14.4)
[2021-07-21 22:53] LABS: ANION GAP 18.1 mmol/L (8-16); CALCIUM 9.2 mg/dL (8.4-10.2); CREATININE, SERUM 1.38 mg/dL (0.72-1.25); POTASSIUM 4.1 mmol/L (3.5-5.1)
[2021-07-21] MEDS ORDERED: SODIUM CHLORIDE 0.9% 50ML 50 ML ONE (23:23)
[2021-07-21] MEDS ORDERED: IOPAMIDOL 370 MG/ML 200 ML INFUS..BTL INJ ONE (23:23)
[2021-07-22] VITALS (8 sets, daily range): BP systolic 116–135; BP diastolic 66–80
[2021-07-22] MEDS ORDERED: ONDANSETRON HCL INJ 2MG/ML 2ML 2 MG/ML VIAL IV STA (00:55)
[2021-07-22] MEDS ORDERED: Morphine 4mg Syringe 4 MG/ML INJ IV ONE (01:00)
[2021-07-22] MEDS ORDERED: PIPERACILLIN/TAZOBACTAM 3.375 GM VIAL ONE ×2 (01:19→08:42)
[2021-07-22] MEDS: PIPERACILLIN/TAZOBACTAM 3.375 GM in SODIUM CHLORIDE 0.9% 50ML 50 ML IV SCH ×3 (01:25→16:53)
[2021-07-22] MEDS: Morphine 4mg Syringe 4 MG/ML INJ IV PRN ×3 (05:53→20:45)
[2021-07-22] MEDS ORDERED: SODIUM CHLORIDE 0.9% 50ML 50 ML ONE (08:43)
[2021-07-22 10:06] LABS: ALBUMIN 3.5 g/dL (3.5-5.0); BILIRUBIN,DIRECT 0.3 mg/dL (0.0-0.5)
[2021-07-22] MEDS ORDERED: AMLODIPINE BESYLATE 5 MG TAB PO SCH (11:00)
[2021-07-22] MEDS: NPH, HUMAN INSULIN ISOPHANE 100 UNIT/1 ML 3ML VIAL SQ SCH ×2 (11:00→20:56)
[2021-07-22] MEDS: MEMANTINE 10 MG TAB PO SCH ×2 (11:00→16:06)
[2021-07-22] MEDS ORDERED: LORAZEPAM 1 MG TAB PO PRN (11:00)
[2021-07-22 11:10] LABS: BASOPHILS % 0.5 % (0.0-1.0); EOSINOPHILS # (AUTO) 0.3 (0.0-0.4); EOSINOPHILS % 4.2 % (0.0-6.0); HEMATOCRIT 33.9 % (38.2-49.6); LYMPHOCYTES # (AUTO) 1.1 (1.0-3.2); LYMPHOCYTES % 13.9 % (18.0-39.1); MEAN CORPUSCULAR HEMOGLOBIN 25.4 pg (28-32); MEAN CORPUSCULAR HGB CONC 29.5 g/dL (31-35); MONOCYTES # (AUTO) 0.8 (0.2-0.8); MONOCYTES % 10.4 % (4.4-11.3); NEUTROPHILS # (AUTO) 5.3 (2.1-6.9); NEUTROPHILS % 70.3 % (38.7-80.0); PLATELET COUNT 249 x10e3/uL (140-360); RED BLOOD COUNT 3.94 x10e6/uL (4.3-5.7); RED CELL DISTRIBUTION WIDTH 17.2 % (11.7-14.4)
[2021-07-22] MEDS ORDERED: POLYETHYLENE GL17 GM PO (11:18)
[2021-07-22] MEDS ORDERED: METOPROLOL SUCCINATE 50 MG TAB XL PO SCH (11:30)
[2021-07-22] MEDS ORDERED: ISOSORBIDE MONONITRATE 30 MG TAB CR PO SCH (11:30)
[2021-07-22] MEDS ORDERED: INSULIN LISPRO 100 UNIT/1 ML 3ML VIAL SQ SCH (11:30)
[2021-07-22] MEDS ORDERED: MIRALAX17 GM PO (11:34)
[2021-07-22] MEDS ORDERED: TORSEMIDE10 MG PO (11:36)
[2021-07-22] MEDS ORDERED: FOLIC ACID0.4 MG PO (11:42)
[2021-07-22] MEDS ORDERED: TORSEMIDE100 MG PO (11:52)
[2021-07-22] MEDS ORDERED: CYMBALTA30 MG PO (12:11)
[2021-07-22] MEDS ORDERED: ELIQUIS5 MG PO (12:36)
[2021-07-22] MEDS ORDERED: RAMELTEON8 MG PO (12:43)
[2021-07-22] MEDS ORDERED: METOPROLOL SUCC25 MG PO (12:53)
[2021-07-22] MEDS: ONDANSETRON HCL INJ 2MG/ML 2ML 2 MG/ML VIAL IV PRN ×2 (13:47→20:45)
[2021-07-22] MEDS ORDERED: METOPROLOL SUCCINATE 25 MG TAB XL PO SCH (14:00)
[2021-07-22] MEDS ORDERED: DEXTROSE 50% SYRINGE 50 ML IV PRN (14:45)
[2021-07-22] MEDS ORDERED: ACETAMINOPHEN/CODEINE 300MG - 30MG TAB PO PRN (15:45)
[2021-07-22] MEDS: APIXABAN 5 MG TABLET PO SCH (16:06)
[2021-07-22] MEDS: METOPROLOL SUCCINATE 25 MG TAB XL PO SCH (16:06)
[2021-07-22] MEDS: LEVOTHYROXINE SODIUM 88 MCG TAB PO SCH (16:06)
[2021-07-22] MEDS: INSULIN LISPRO 100 UNIT/1 ML 3ML VIAL SQ SCH ×2 (16:30→20:55)
[2021-07-22] MEDS ORDERED: DULOXETINE HCL 30 MG DELAYED RELEASE PO SCH (17:00)
[2021-07-22] MEDS ORDERED: GABAPENTIN 300 MG CAP PO SCH (17:00)
[2021-07-22] MEDS ORDERED: TICAGRELOR 90 MG TABLET PO SCH (17:00)
[2021-07-22] MEDS: DONEPEZIL HCL 5 MG TAB PO SCH (20:40)
[2021-07-22] MEDS: CRESTOR 10MG PO SCH (20:44)
[2021-07-22] MEDS: QUETIAPINE FUMARATE 100 MG TAB PO SCH (20:44)
[2021-07-22] MEDS: FENOFIBRATE 145 MG TAB PO SCH (20:44)
[2021-07-22] MEDS ORDERED: QUETIAPINE FUMARATE PO SCH (21:00)
[2021-07-22] MEDS ORDERED: NON-FORMULARY MEDICATION (Rosuvastatin Calcium 1 TAB) PO SCH (21:00)
[2021-07-23] VITALS (7 sets, daily range): BP systolic 106–128; BP diastolic 49–63
[2021-07-23] MEDS: PIPERACILLIN/TAZOBACTAM 3.375 GM in SODIUM CHLORIDE 0.9% 50ML 50 ML IV SCH ×3 (00:41→17:29)
[2021-07-23] MEDS: ONDANSETRON HCL INJ 2MG/ML 2ML 2 MG/ML VIAL IV PRN ×3 (01:15→20:25)
[2021-07-23] MEDS: Morphine 4mg Syringe 4 MG/ML INJ IV PRN ×3 (01:16→20:25)
[2021-07-23 04:54] LABS: BASOPHILS # (AUTO) 0.1 (0.0-0.1); BASOPHILS % 1.3 % (0.0-1.0); EOSINOPHILS # (AUTO) 0.4 (0.0-0.4); EOSINOPHILS % 8.1 % (0.0-6.0); HEMATOCRIT 33.5 % (38.2-49.6); HEMOGLOBIN 9.9 g/dL (14.0-18.0); LYMPHOCYTES # (AUTO) 1.1 (1.0-3.2); LYMPHOCYTES % 24.5 % (18.0-39.1); MEAN CORPUSCULAR HEMOGLOBIN 25.3 pg (28-32); MEAN CORPUSCULAR HGB CONC 29.6 g/dL (31-35); MEAN CORPUSCULAR VOLUME 85.7 fL (81-99); MONOCYTES # (AUTO) 0.6 (0.2-0.8); MONOCYTES % 12.4 % (4.4-11.3); NEUTROPHILS # (AUTO) 2.4 (2.1-6.9); PLATELET COUNT 215 x10e3/uL (140-360); RED BLOOD COUNT 3.91 x10e6/uL (4.3-5.7); RED CELL DISTRIBUTION WIDTH 17.1 % (11.7-14.4)
[2021-07-23 05:16] LABS: ALBUMIN 3.2 g/dL (3.5-5.0); ALBUMIN/GLOBULIN RATIO 1.1 (0.8-2.0); ANION GAP 12.8 mmol/L (8-16); CALCIUM 8.5 mg/dL (8.4-10.2); CREATININE, SERUM 1.6 mg/dL (0.72-1.25); POTASSIUM 3.8 mmol/L (3.5-5.1)
[2021-07-23] MEDS: LEVOTHYROXINE SODIUM 88 MCG TAB PO SCH ×3 (05:42→06:12)
[2021-07-23] MEDS: INSULIN LISPRO 100 UNIT/1 ML 3ML VIAL SQ SCH ×4 (07:30→21:00)
[2021-07-23] MEDS: METOPROLOL SUCCINATE 25 MG TAB XL PO SCH ×2 (08:43→17:32)
[2021-07-23] MEDS: FOLIC ACID 1 MG TAB PO SCH (08:43)
[2021-07-23] MEDS: APIXABAN 5 MG TABLET PO SCH ×2 (08:43→17:30)
[2021-07-23] MEDS: LOSARTAN POTASSIUM 25 MG TAB PO SCH (08:43)
[2021-07-23] MEDS: PANTOPRAZOLE SOD 40 MG TABEC PO SCH (08:43)
[2021-07-23] MEDS: POLYETHYLENE GLYCOL 3350 17 GM PACK PO SCH (08:43)
[2021-07-23] MEDS: TAMSULOSIN HCL 0.4 MG CAP PO SCH (08:43)
[2021-07-23] MEDS: MEMANTINE 10 MG TAB PO SCH ×2 (08:43→22:21)
[2021-07-23] MEDS: BUPROPION HCL 150 MG TABCR PO SCH (08:43)
[2021-07-23] MEDS: ASPIRIN 81 MG ENTERIC COATED PO SCH (08:43)
[2021-07-23] MEDS: TORSEMIDE 10 MG TAB PO SCH (08:43)
[2021-07-23] MEDS: NPH, HUMAN INSULIN ISOPHANE 100 UNIT/1 ML 3ML VIAL SQ SCH ×2 (08:44→21:00)
[2021-07-23] MEDS ORDERED: FUROSEMIDE 20 MG TAB PO SCH (09:00)
[2021-07-23] MEDS ORDERED: QUETIAPINE FUMARATE 100 MG TAB PO SCH (09:00)
[2021-07-23] MEDS ORDERED: TORSEMIDE 10 MG TAB PO SCH (09:00)
[2021-07-23] MEDS ORDERED: NON-FORMULARY MEDICATION (Losartan Potassium 50 MG) PO SCH (09:00)
[2021-07-23] MEDS ORDERED: METOLAZONE 5 MG TAB PO SCH (09:00)
[2021-07-23] MEDS: QUETIAPINE FUMARATE 100 MG TAB PO SCH (22:21)
[2021-07-23] MEDS: DONEPEZIL HCL 5 MG TAB PO SCH (22:21)
[2021-07-23] MEDS: DULOXETINE HCL 30 MG DELAYED RELEASE PO SCH (22:21)
[2021-07-23] MEDS: CRESTOR 10MG PO SCH (22:21)
[2021-07-23] MEDS: FENOFIBRATE 145 MG TAB PO SCH (22:21)
[2021-07-24] VITALS (9 sets, daily range): BP systolic 107–135; BP diastolic 52–72
[2021-07-24] MEDS: PIPERACILLIN/TAZOBACTAM 3.375 GM in SODIUM CHLORIDE 0.9% 50ML 50 ML IV SCH ×3 (00:54→16:47)
[2021-07-24] MEDS: Morphine 4mg Syringe 4 MG/ML INJ IV PRN ×3 (02:28→18:38)
[2021-07-24] MEDS: ONDANSETRON HCL INJ 2MG/ML 2ML 2 MG/ML VIAL IV PRN ×3 (02:28→18:38)
[2021-07-24 05:08] LABS: BASOPHILS # (AUTO) 0.1 (0.0-0.1); BASOPHILS % 1.3 % (0.0-1.0); EOSINOPHILS # (AUTO) 0.4 (0.0-0.4); EOSINOPHILS % 8.1 % (0.0-6.0); HEMATOCRIT 30.7 % (38.2-49.6); HEMOGLOBIN 9.2 g/dL (14.0-18.0); LYMPHOCYTES # (AUTO) 1.1 (1.0-3.2); LYMPHOCYTES % 24.6 % (18.0-39.1); MEAN CORPUSCULAR HEMOGLOBIN 25.3 pg (28-32); MEAN CORPUSCULAR VOLUME 84.3 fL (81-99); MONOCYTES # (AUTO) 0.6 (0.2-0.8); MONOCYTES % 12.5 % (4.4-11.3); NEUTROPHILS # (AUTO) 2.4 (2.1-6.9); NEUTROPHILS % 52.6 % (38.7-80.0); PLATELET COUNT 215 x10e3/uL (140-360); RED BLOOD COUNT 3.64 x10e6/uL (4.3-5.7); RED CELL DISTRIBUTION WIDTH 17.1 % (11.7-14.4)
[2021-07-24 05:27] LABS: ALBUMIN 3.1 g/dL (3.5-5.0); ALBUMIN/GLOBULIN RATIO 1.1 (0.8-2.0); ANION GAP 13.1 mmol/L (8-16); CALCIUM 8.4 mg/dL (8.4-10.2); CREATININE, SERUM 1.58 mg/dL (0.72-1.25); POTASSIUM 4.1 mmol/L (3.5-5.1)
[2021-07-24] MEDS: INSULIN LISPRO 100 UNIT/1 ML 3ML VIAL SQ SCH ×4 (07:30→21:37)
[2021-07-24] MEDS: NPH, HUMAN INSULIN ISOPHANE 100 UNIT/1 ML 3ML VIAL SQ SCH ×2 (09:00→21:37)
[2021-07-24] MEDS: BUPROPION HCL 150 MG TABCR PO SCH (09:20)
[2021-07-24] MEDS: APIXABAN 5 MG TABLET PO SCH ×2 (09:20→16:47)
[2021-07-24] MEDS: METOPROLOL SUCCINATE 25 MG TAB XL PO SCH ×2 (09:20→16:47)
[2021-07-24] MEDS: ASPIRIN 81 MG ENTERIC COATED PO SCH (09:20)
[2021-07-24] MEDS: LOSARTAN POTASSIUM 25 MG TAB PO SCH (09:20)
[2021-07-24] MEDS: MEMANTINE 10 MG TAB PO SCH ×2 (09:20→21:37)
[2021-07-24] MEDS: PANTOPRAZOLE SOD 40 MG TABEC PO SCH (09:20)
[2021-07-24] MEDS: TAMSULOSIN HCL 0.4 MG CAP PO SCH (09:20)
[2021-07-24] MEDS: POLYETHYLENE GLYCOL 3350 17 GM PACK PO SCH (09:20)
[2021-07-24] MEDS: TORSEMIDE 10 MG TAB PO SCH (09:20)
[2021-07-24] MEDS: FOLIC ACID 1 MG TAB PO SCH (09:20)
[2021-07-24] MEDS ORDERED: DOCUSATE SODIUM 100 MG CAP PO ONE (20:45)
[2021-07-24] MEDS: QUETIAPINE FUMARATE 100 MG TAB PO SCH (21:37)
[2021-07-24] MEDS: CRESTOR 10MG PO SCH (21:37)
[2021-07-24] MEDS: DULOXETINE HCL 30 MG DELAYED RELEASE PO SCH (21:37)
[2021-07-24] MEDS: DONEPEZIL HCL 5 MG TAB PO SCH (21:37)
[2021-07-24] MEDS: FENOFIBRATE 145 MG TAB PO SCH (21:37)
[2021-07-25] VITALS: BP 115/58
[2021-07-25] MEDS: PIPERACILLIN/TAZOBACTAM 3.375 GM in SODIUM CHLORIDE 0.9% 50ML 50 ML IV SCH ×3 (01:55→17:00)
[2021-07-25] MEDS ORDERED: SODIUM CHLORIDE 0.9% 250ML 250 ML ONE (02:14)
[2021-07-25] MEDS: Morphine 4mg Syringe 4 MG/ML INJ IV PRN ×3 (02:15→18:47)
[2021-07-25 04:00] VITALS: BP 116/62
[2021-07-25] MEDS: LEVOTHYROXINE SODIUM 88 MCG TAB PO SCH (06:00)
[2021-07-25 06:43] LABS: BASOPHILS # (AUTO) 0.1 (0.0-0.1); BASOPHILS % 0.9 % (0.0-1.0); EOSINOPHILS # (AUTO) 0.5 (0.0-0.4); EOSINOPHILS % 9.6 % (0.0-6.0); HEMATOCRIT 32.3 % (38.2-49.6); HEMOGLOBIN 9.4 g/dL (14.0-18.0); LYMPHOCYTES # (AUTO) 1.2 (1.0-3.2); LYMPHOCYTES % 22.7 % (18.0-39.1); MEAN CORPUSCULAR HGB CONC 29.1 g/dL (31-35); MEAN CORPUSCULAR VOLUME 85.9 fL (81-99); MONOCYTES # (AUTO) 0.7 (0.2-0.8); MONOCYTES % 12.2 % (4.4-11.3); NEUTROPHILS # (AUTO) 2.9 (2.1-6.9); NEUTROPHILS % 53.7 % (38.7-80.0); PLATELET COUNT 212 x10e3/uL (140-360); RED BLOOD COUNT 3.76 x10e6/uL (4.3-5.7)
[2021-07-25 07:13] LABS: ANION GAP 15.1 mmol/L (8-16); CALCIUM 8.8 mg/dL (8.4-10.2); CREATININE, SERUM 1.64 mg/dL (0.72-1.25); POTASSIUM 4.1 mmol/L (3.5-5.1)
[2021-07-25] MEDS: INSULIN LISPRO 100 UNIT/1 ML 3ML VIAL SQ SCH ×3 (07:30→17:08)
[2021-07-25 08:05] VITALS: BP 129/60
[2021-07-25] MEDS: TORSEMIDE 10 MG TAB PO SCH (09:00)
[2021-07-25] MEDS: PANTOPRAZOLE SOD 40 MG TABEC PO SCH (09:00)
[2021-07-25] MEDS: TAMSULOSIN HCL 0.4 MG CAP PO SCH (09:00)
[2021-07-25] MEDS: LOSARTAN POTASSIUM 25 MG TAB PO SCH (09:00)
[2021-07-25] MEDS ORDERED: DOCUSATE SODIUM 100 MG CAP PO SCH (09:00)
[2021-07-25] MEDS: ASPIRIN 81 MG ENTERIC COATED PO SCH (09:00)
[2021-07-25] MEDS ORDERED: BALSAM PERU/CASTOR OIL 60 GM OINT...G. TP SCH ×2 (09:00→21:00)
[2021-07-25] MEDS: APIXABAN 5 MG TABLET PO SCH ×2 (09:00→17:07)
[2021-07-25] MEDS: MEMANTINE 10 MG TAB PO SCH (09:00)
[2021-07-25] MEDS: BUPROPION HCL 150 MG TABCR PO SCH (09:00)
[2021-07-25] MEDS: NPH, HUMAN INSULIN ISOPHANE 100 UNIT/1 ML 3ML VIAL SQ SCH (09:00)
[2021-07-25] MEDS: POLYETHYLENE GLYCOL 3350 17 GM PACK PO SCH (09:00)
[2021-07-25] MEDS: METOPROLOL SUCCINATE 25 MG TAB XL PO SCH ×2 (09:00→17:00)
[2021-07-25] MEDS: FOLIC ACID 1 MG TAB PO SCH (09:00)
[2021-07-25 09:47] VITALS: BP 129/60
[2021-07-25] MEDS: ONDANSETRON HCL INJ 2MG/ML 2ML 2 MG/ML VIAL IV PRN ×2 (11:00→18:47)
[2021-07-25 11:40] VITALS: BP 120/50
[2021-07-25 15:40] VITALS: BP 110/52
[2021-07-25] MEDS ORDERED: SOD PHOSPHATE/SOD BIPHOSPHATE ENEMA 132 ML BTL PR ONE (15:45)
[2021-07-25] MEDS ORDERED: AUGMENTIN 500-1 EACH PO (15:48)
[2021-07-25] MEDS ORDERED: Acetaminophen/Codeine 300-30MG PO (15:48)
== END 2021-07-25 20:31 | disposition home or self-care (01) | DRG 155 ==
LOC: ER 22:00 → ERHOLD 07-22 00:58 → INTOOBSV 07-22 00:58 → IMCU 07-22 07:52 → OBSVTOIN 07-23 10:00 → INTOOBSV 07-23 10:00 → OBSVTOIN 07-24 12:00 → MED/SURG 07-24 20:23
PROVIDERS: ADMIT Internal Medicine; ATTEND Internal Medicine
DX: K11.21 Acute sialoadenitis (principal); I50.32 Chronic diastolic (congestive) heart failure; I13.0 Hypertensive heart and chronic kidney disease with heart failure and stage 1 through stage 4 chronic kidney disease, or unspecified chronic kidney disease; E03.9 Hypothyroidism, unspecified; E11.42 Type 2 diabetes mellitus with diabetic polyneuropathy; E11.319 Type 2 diabetes mellitus with unspecified diabetic retinopathy without macular edema; I25.10 Atherosclerotic heart disease of native coronary artery without angina pectoris; Z95.5 Presence of coronary angioplasty implant and graft; F31.9 Bipolar disorder, unspecified; Z95.0 Presence of cardiac pacemaker; J44.9 Chronic obstructive pulmonary disease, unspecified; E78.5 Hyperlipidemia, unspecified; F41.9 Anxiety disorder, unspecified; F32.A Depression, unspecified; G89.29 Other chronic pain; E11.22 Type 2 diabetes mellitus with diabetic chronic kidney disease; N18.32 Chronic kidney disease, stage 3b; E11.21 Type 2 diabetes mellitus with diabetic nephropathy
CPT/HCPCS: 36415; 70487; 80048; 80053; 80076; 82948; 85025; 87040; 94799; 96372; 97139; 99251; 99284; G0378; J2270; J2405; J2543; J7050; Q9967; U0002

== ENCOUNTER 2021-10-31 22:02 | Emergency (ER) | payer MEDICARE ==
[~2021-10-31] VITALS: Ht 172.7 cm; Wt 117.0 kg
[~2021-10-31 22:02] MED LIST changes: +AUGMENTIN 500-1 EACH PO; +Acetaminophen/Codeine 300-30MG PO; +CYMBALTA30 MG PO; +ELIQUIS5 MG PO; +FOLIC ACID0.4 MG PO; +METOPROLOL SUCC25 MG PO; +POLYETHYLENE GL17 GM PO; +RAMELTEON8 MG PO; +TORSEMIDE10 MG PO
[2021-10-31] MEDS ORDERED: PIPERACILLIN/TAZOBACTAM 3.375 GM in SODIUM CHLORIDE 0.9% 50ML 50 ML IV ONE (22:30)
[2021-10-31 22:37] LABS: BASOPHILS # (AUTO) 0.1 (0.0-0.1); BASOPHILS % 1.1 % (0.0-1.0); EOSINOPHILS # (AUTO) 0.6 (0.0-0.4); HEMATOCRIT 34.8 % (38.2-49.6); HEMOGLOBIN 10.8 g/dL (14.0-18.0); LYMPHOCYTES # (AUTO) 0.8 (1.0-3.2); LYMPHOCYTES % 13.3 % (18.0-39.1); MONOCYTES # (AUTO) 0.6 (0.2-0.8); NEUTROPHILS # (AUTO) 4.2 (2.1-6.9); NEUTROPHILS % 67.1 % (38.7-80.0); PLATELET COUNT 226 x10e3/uL (140-360); RED CELL DISTRIBUTION WIDTH 17.1 % (11.7-14.4)
[2021-10-31 22:54] LABS: ALBUMIN 3.7 g/dL (3.5-5.0); ALBUMIN/GLOBULIN RATIO 1.1 (0.8-2.0); CALCIUM 9.3 mg/dL (8.4-10.2); CREATININE, SERUM 1.48 mg/dL (0.72-1.25)
[2021-10-31] MEDS ORDERED: ONDANSETRON HCL INJ 2MG/ML 2ML 2 MG/ML VIAL IV STA (23:06)
[2021-10-31] MEDS ORDERED: Morphine 4mg Syringe 4 MG/ML INJ IV STA (23:06)
[2021-10-31] MEDS ORDERED: IOPAMIDOL 370 MG/ML 200 ML INFUS..BTL INJ ONE (23:13)
[2021-10-31] MEDS ORDERED: SODIUM CHLORIDE 0.9% 50ML 50 ML ONE (23:13)
[2021-10-31] MEDS ORDERED: Morphine 2mg Syringe 2 MG/ML SYR ONE (23:20)
[2021-10-31] MEDS ORDERED: ONDANSETRON HCL INJ 2MG/ML 2ML 2 MG/ML VIAL ONE (23:20)
[2021-11-01] MEDS ORDERED: HYDROMORPHONE 1MG/1ML INJ IV STA (00:03)
[2021-11-01] MEDS ORDERED: CLINDAMYCIN HCL 150 MG CAP PO STA (00:03)
[2021-11-01] MEDS ORDERED: ACETAMINOPHEN-1 EAC4 PO (00:09)
[2021-11-01] MEDS ORDERED: AUGMENTIN 500-1 EACH PO (00:09)
[2021-11-01 01:22] VITALS: BP 125/66
[2021-11-01] MEDS ORDERED: PIPERACILLIN/TAZOBACTAM 3.375 GM in SODIUM CHLORIDE 0.9% 50ML 50 ML IV SCH (06:00)
== END 2021-11-01 01:20 | disposition home or self-care (01) ==
LOC: ER 22:18
DX: K11.20 Sialoadenitis, unspecified (principal); I10 Essential (primary) hypertension; E11.65 Type 2 diabetes mellitus with hyperglycemia; E78.5 Hyperlipidemia, unspecified; F03.90 Unspecified dementia, unspecified severity, without behavioral disturbance, psychotic disturbance, mood disturbance, and anxiety; E03.9 Hypothyroidism, unspecified; I50.9 Heart failure, unspecified; J44.9 Chronic obstructive pulmonary disease, unspecified; D64.9 Anemia, unspecified; K21.9 Gastro-esophageal reflux disease without esophagitis; Z86.73 Personal history of transient ischemic attack (TIA), and cerebral infarction without residual deficits
CPT/HCPCS: 36415; 70487; 80053; 85025; 99283; J1170; J2270; J2405; J2543; Q9967

== ENCOUNTER 2022-02-17 18:42 | Observation (INO) | payer MEDICARE ==
[~2022-02-17] VITALS: Ht 172.7 cm; Wt 117.0 kg
[~2022-02-17 18:42] MED LIST changes: +ACETAMINOPHEN-1 EAC4 PO
[2022-02-17 19:41] LABS: BASOPHILS % 0.7 % (0.0-1.0); EOSINOPHILS # (AUTO) 0.2 (0.0-0.4); EOSINOPHILS % 3.3 % (0.0-6.0); HEMATOCRIT 34.4 % (38.2-49.6); HEMOGLOBIN 10.7 g/dL (14.0-18.0); LYMPHOCYTES # (AUTO) 0.6 (1.0-3.2); LYMPHOCYTES % 12.3 % (18.0-39.1); MEAN CORPUSCULAR HEMOGLOBIN 26.6 pg (28-32); MEAN CORPUSCULAR HGB CONC 31.1 g/dL (31-35); MEAN CORPUSCULAR VOLUME 85.6 fL (81-99); MONOCYTES # (AUTO) 0.5 (0.2-0.8); MONOCYTES % 10.5 % (4.4-11.3); NEUTROPHILS # (AUTO) 3.3 (2.1-6.9); NEUTROPHILS % 72.5 % (38.7-80.0); PLATELET COUNT 236 x10e3/uL (140-360); RED BLOOD COUNT 4.02 x10e6/uL (4.3-5.7); RED CELL DISTRIBUTION WIDTH 17.3 % (11.7-14.4)
[2022-02-17 20:00] LABS: ALBUMIN 3.4 g/dL (3.5-5.0); CALCIUM 8.4 mg/dL (8.4-10.2); CREATININE, SERUM 1.94 mg/dL (0.72-1.25)
[2022-02-17 20:07] LABS: CREATINE KINASE MB 2.4 ng/mL (0-5.0)
[2022-02-17] MEDS ORDERED: ACETAMINOPHEN 325 MG TAB PO ONE (20:45)
[2022-02-17] MEDS ORDERED: TRAMADOL HCL 50 MG TAB PO ONE (23:30)
[2022-02-17] MEDS ORDERED: TRAMADOL HCL 50 MG TAB ONE (23:39)
[2022-02-17 23:43] LABS: CLARITY,URINE CLOUDY (CLEAR); COLOR,URINE YELLOW (YELLOW); KETONES,URINE NEGATIVE (NEGATIVE); LEUKOCYTE ESTERASE ,URINE NEGATIVE (NEGATIVE); NITRITE,URINE NEGATIVE (NEGATIVE); PROTEIN,URINE DIPSTICK NEGATIVE (NEGATIVE)
[2022-02-17 23:44] LABS: URINE UROBILINOGEN 0.2 mg/dL (0.2 - 1)
[2022-02-17] MEDS ORDERED: INSULIN REGULAR, HUMAN 100 UNIT/1 ML SQ PRN (23:45)
[2022-02-17 23:46] LABS: BACTERIA,URINE MODERATE /HPF; EPITHELIAL CELLS,URINE FEW /LPF; MUCUS,URINE MANY (RARE)
[2022-02-18] VITALS (8 sets, daily range): BP systolic 109–153; BP diastolic 46–71
[2022-02-18] MEDS ORDERED: DEXTROSE 50% SYRINGE 50 ML IV PRN
[2022-02-18] MEDS: FUROSEMIDE INJ 10 MG/ML 4 ML VIAL IV SCH ×3 (00:45→17:00)
[2022-02-18] MEDS ORDERED: WELLBUTRIN SR150 MG PO (01:44)
[2022-02-18] MEDS ORDERED: FOLIC ACID-VIT1 EACH PO (01:44)
[2022-02-18] MEDS ORDERED: ROZEREM8 MG PO (01:44)
[2022-02-18] MEDS ORDERED: MIRTAZAPINE7.5 MG PO (01:44)
[2022-02-18] MEDS ORDERED: SERTRALINE HCL50 MG PO (01:44)
[2022-02-18] MEDS ORDERED: AMLODIPINE BESY10 MG PO (01:44)
[2022-02-18] MEDS ORDERED: SEROQUEL100 MG PO (01:44)
[2022-02-18] MEDS ORDERED: NPH, HUMAN INSULIN ISOPHANE 100 UNIT/1 ML 3ML VIAL SQ SCH (02:00)
[2022-02-18] MEDS: MIRTAZAPINE 15 MG TAB PO SCH ×2 (02:30→21:00)
[2022-02-18] MEDS: QUETIAPINE FUMARATE 100 MG TAB PO SCH ×2 (02:30→21:00)
[2022-02-18] MEDS: ALBUTEROL/IPRATROPIUM 3 ML NEB NEB SCH ×6 (07:20→23:00)
[2022-02-18] MEDS: INSULIN REGULAR, HUMAN 100 UNIT/1 ML SQ SCH ×4 (07:30→21:00)
[2022-02-18 08:32] LABS: CREATINE KINASE MB 2.4 ng/mL (0-5.0)
[2022-02-18] MEDS ORDERED: QUETIAPINE FUMARATE 100 MG TAB PO SCH (09:00)
[2022-02-18] MEDS: MEMANTINE 10 MG TAB PO SCH ×2 (09:42→17:00)
[2022-02-18] MEDS: POLYETHYLENE GLYCOL 3350 17 GM PACK PO SCH (09:42)
[2022-02-18] MEDS: SERTRALINE HCL 50 MG TAB PO SCH (09:43)
[2022-02-18] MEDS: LEVOTHYROXINE SODIUM 88 MCG TAB PO SCH (09:43)
[2022-02-18] MEDS: TAMSULOSIN HCL 0.4 MG CAP PO SCH ×2 (09:43→17:00)
[2022-02-18] MEDS: DONEPEZIL HCL 5 MG TAB PO SCH (09:43)
[2022-02-18] MEDS: METOPROLOL SUCCINATE 25 MG TAB XL PO SCH ×2 (09:43→16:59)
[2022-02-18] MEDS: ASPIRIN 81 MG ENTERIC COATED PO SCH (09:44)
[2022-02-18] MEDS: BUPROPION HCL SR 150 MG TAB PO SCH ×2 (09:44→16:59)
[2022-02-18] MEDS: AMLODIPINE BESYLATE 10 MG TAB PO SCH (09:44)
[2022-02-18] MEDS: APIXABAN 5 MG TABLET PO SCH ×2 (09:44→17:00)
[2022-02-18] MEDS: PANTOPRAZOLE SOD 40 MG TABEC PO SCH (09:45)
[2022-02-18] MEDS: TORSEMIDE 10 MG TAB PO SCH (09:46)
[2022-02-18] MEDS: ONDANSETRON HCL INJ 2MG/ML 2ML 2 MG/ML VIAL IV PRN ×2 (12:49→18:42)
[2022-02-18] MEDS: HYDROCODONE/APAP 5MG-325MG TAB PO PRN ×3 (12:50→21:14)
[2022-02-18 15:07] LABS: CREATINE KINASE MB 2.3 ng/mL (0-5.0)
[2022-02-18 15:20] LABS: ANION GAP 17.7 mmol/L (8-16); CALCIUM 8.9 mg/dL (8.4-10.2); CREATININE, SERUM 1.77 mg/dL (0.72-1.25); POTASSIUM 3.7 mmol/L (3.5-5.1)
[2022-02-18] MEDS ORDERED: SODIUM CHLORIDE 0.9% 250ML 250 ML ONE (17:06)
[2022-02-18] MEDS: NON-FORMULARY MEDICATION (Ramelteon (Rozerem) 1 TAB) PO SCH (20:57)
[2022-02-18] MEDS: CRESTOR 10MG PO SCH (21:00)
[2022-02-18] MEDS: FENOFIBRATE 145 MG TAB PO SCH (21:00)
[2022-02-19] VITALS (8 sets, daily range): BP systolic 106–138; BP diastolic 47–93
[2022-02-19] MEDS: ALBUTEROL/IPRATROPIUM 3 ML NEB NEB SCH ×6 (00:05→19:50)
[2022-02-19] MEDS: HYDROCODONE/APAP 5MG-325MG TAB PO PRN ×5 (01:01→22:27)
[2022-02-19 07:12] LABS: ANION GAP 15.8 mmol/L (8-16); CALCIUM 8.9 mg/dL (8.4-10.2); CREATININE, SERUM 1.86 mg/dL (0.72-1.25); MAGNESIUM 2.1 MG/DL (1.3-2.1); POTASSIUM 3.8 mmol/L (3.5-5.1)
[2022-02-19 07:22] LABS: EOSINOPHILS # (AUTO) 0.3 (0.0-0.4); EOSINOPHILS % 6.8 % (0.0-6.0); HEMATOCRIT 35.4 % (38.2-49.6); HEMOGLOBIN 10.8 g/dL (14.0-18.0); LYMPHOCYTES # (AUTO) 0.7 (1.0-3.2); LYMPHOCYTES % 18.3 % (18.0-39.1); MEAN CORPUSCULAR HEMOGLOBIN 26.4 pg (28-32); MEAN CORPUSCULAR HGB CONC 30.5 g/dL (31-35); MEAN CORPUSCULAR VOLUME 86.6 fL (81-99); MONOCYTES # (AUTO) 0.6 (0.2-0.8); MONOCYTES % 15.1 % (4.4-11.3); NEUTROPHILS # (AUTO) 2.2 (2.1-6.9); NEUTROPHILS % 57.8 % (38.7-80.0); PLATELET COUNT 253 x10e3/uL (140-360); RED BLOOD COUNT 4.09 x10e6/uL (4.3-5.7)
[2022-02-19] MEDS ORDERED: POTASSIUM CHLORIDE 10MEQ EA PO SCH (09:00)
[2022-02-19] MEDS: BUPROPION HCL SR 150 MG TAB PO SCH ×2 (09:19→21:00)
[2022-02-19] MEDS: SERTRALINE HCL 50 MG TAB PO SCH (09:19)
[2022-02-19] MEDS: PANTOPRAZOLE SOD 40 MG TABEC PO SCH (09:22)
[2022-02-19] MEDS: DONEPEZIL HCL 5 MG TAB PO SCH (09:22)
[2022-02-19] MEDS: TORSEMIDE 10 MG TAB PO SCH (09:23)
[2022-02-19] MEDS: APIXABAN 5 MG TABLET PO SCH ×2 (09:23→21:00)
[2022-02-19] MEDS: ASPIRIN 81 MG ENTERIC COATED PO SCH (09:23)
[2022-02-19] MEDS: POLYETHYLENE GLYCOL 3350 17 GM PACK PO SCH (09:24)
[2022-02-19] MEDS: MEMANTINE 10 MG TAB PO SCH ×2 (09:24→21:00)
[2022-02-19] MEDS: TAMSULOSIN HCL 0.4 MG CAP PO SCH ×2 (09:24→21:00)
[2022-02-19] MEDS: METOPROLOL SUCCINATE 25 MG TAB XL PO SCH ×2 (09:25→21:00)
[2022-02-19] MEDS: AMLODIPINE BESYLATE 10 MG TAB PO SCH (09:25)
[2022-02-19] MEDS: LEVOTHYROXINE SODIUM 88 MCG TAB PO SCH (09:26)
[2022-02-19] MEDS: FUROSEMIDE INJ 10 MG/ML 4 ML VIAL IV SCH ×2 (09:26→21:00)
[2022-02-19] MEDS: INSULIN REGULAR, HUMAN 100 UNIT/1 ML SQ SCH ×4 (09:40→21:00)
[2022-02-19] MEDS: ONDANSETRON HCL INJ 2MG/ML 2ML 2 MG/ML VIAL IV PRN ×2 (09:41→18:10)
[2022-02-19] MEDS ORDERED: APIXABAN 5 MG TABLET PO SCH (12:45)
[2022-02-19] MEDS: AZITHROMYCIN 250 MG TAB PO SCH (13:21)
[2022-02-19] MEDS: NON-FORMULARY MEDICATION (Ramelteon (Rozerem) 1 TAB) PO SCH (20:52)
[2022-02-19] MEDS: QUETIAPINE FUMARATE 100 MG TAB PO SCH (21:00)
[2022-02-19] MEDS: CRESTOR 10MG PO SCH (21:00)
[2022-02-19] MEDS: FENOFIBRATE 145 MG TAB PO SCH (21:00)
[2022-02-19] MEDS: MIRTAZAPINE 15 MG TAB PO SCH (21:00)
[2022-02-20] VITALS: BP 131/61
[2022-02-20 04:00] VITALS: BP 168/74
[2022-02-20] MEDS: ALBUTEROL/IPRATROPIUM 3 ML NEB NEB SCH ×4 (04:15→14:45)
[2022-02-20 06:41] LABS: EOSINOPHILS # (AUTO) 0.3 (0.0-0.4); EOSINOPHILS % 6.5 % (0.0-6.0); HEMATOCRIT 36.8 % (38.2-49.6); HEMOGLOBIN 11.2 g/dL (14.0-18.0); LYMPHOCYTES # (AUTO) 0.7 (1.0-3.2); LYMPHOCYTES % 17.1 % (18.0-39.1); MEAN CORPUSCULAR HEMOGLOBIN 26.2 pg (28-32); MEAN CORPUSCULAR HGB CONC 30.4 g/dL (31-35); MEAN CORPUSCULAR VOLUME 86.2 fL (81-99); MONOCYTES # (AUTO) 0.5 (0.2-0.8); MONOCYTES % 12.1 % (4.4-11.3); NEUTROPHILS # (AUTO) 2.4 (2.1-6.9); NEUTROPHILS % 62.8 % (38.7-80.0); PLATELET COUNT 265 x10e3/uL (140-360); RED BLOOD COUNT 4.27 x10e6/uL (4.3-5.7); RED CELL DISTRIBUTION WIDTH 16.3 % (11.7-14.4)
[2022-02-20 07:05] LABS: ANION GAP 17.6 mmol/L (8-16); CALCIUM 9.3 mg/dL (8.4-10.2); CREATININE, SERUM 1.83 mg/dL (0.72-1.25); POTASSIUM 3.6 mmol/L (3.5-5.1)
[2022-02-20 08:00] VITALS: BP 168/74
[2022-02-20 08:25] VITALS: BP 131/58
[2022-02-20] MEDS ORDERED: AMLODIPINE BESYLATE 10 MG TAB PO SCH (09:00)
[2022-02-20] MEDS: HYDROCODONE/APAP 5MG-325MG TAB PO PRN ×2 (10:01→18:14)
[2022-02-20] MEDS: ONDANSETRON HCL INJ 2MG/ML 2ML 2 MG/ML VIAL IV PRN (10:02)
[2022-02-20] MEDS: POLYETHYLENE GLYCOL 3350 17 GM PACK PO SCH (10:03)
[2022-02-20] MEDS: MEMANTINE 10 MG TAB PO SCH (10:04)
[2022-02-20] MEDS: SERTRALINE HCL 50 MG TAB PO SCH (10:04)
[2022-02-20] MEDS: BUPROPION HCL SR 150 MG TAB PO SCH (10:05)
[2022-02-20] MEDS: APIXABAN 5 MG TABLET PO SCH (10:05)
[2022-02-20] MEDS: ASPIRIN 81 MG ENTERIC COATED PO SCH (10:06)
[2022-02-20] MEDS: DONEPEZIL HCL 5 MG TAB PO SCH (10:06)
[2022-02-20] MEDS: FUROSEMIDE INJ 10 MG/ML 4 ML VIAL IV SCH (10:06)
[2022-02-20] MEDS: TAMSULOSIN HCL 0.4 MG CAP PO SCH (10:06)
[2022-02-20] MEDS: PANTOPRAZOLE SOD 40 MG TABEC PO SCH (10:07)
[2022-02-20] MEDS: METOPROLOL SUCCINATE 25 MG TAB XL PO SCH (10:08)
[2022-02-20] MEDS: LEVOTHYROXINE SODIUM 88 MCG TAB PO SCH (10:24)
[2022-02-20] MEDS: INSULIN REGULAR, HUMAN 100 UNIT/1 ML SQ SCH ×3 (10:24→18:27)
[2022-02-20 12:21] VITALS: BP 138/57
[2022-02-20] MEDS: AZITHROMYCIN 250 MG TAB PO SCH (14:16)
[2022-02-20] MEDS ORDERED: AMLODIPINE BESY10 MG PO (16:25)
[2022-02-20] MEDS ORDERED: ZITHROMAX250 MG PO (16:27)
[2022-02-20 17:16] VITALS: BP 128/57
== END 2022-02-20 18:43 | disposition home or self-care (01) ==
LOC: ER 19:16 → INTOOBSV 23:51 → ERHOLD 23:51 → MED/SURG2 02-18 00:30
PROVIDERS: ADMIT Internal Medicine; ATTEND Internal Medicine
DX: I13.0 Hypertensive heart and chronic kidney disease with heart failure and stage 1 through stage 4 chronic kidney disease, or unspecified chronic kidney disease (principal); J96.01 Acute respiratory failure with hypoxia; I50.23 Acute on chronic systolic (congestive) heart failure; J20.9 Acute bronchitis, unspecified; J44.0 Chronic obstructive pulmonary disease with (acute) lower respiratory infection; J44.1 Chronic obstructive pulmonary disease with (acute) exacerbation; E03.9 Hypothyroidism, unspecified; D64.9 Anemia, unspecified; K21.9 Gastro-esophageal reflux disease without esophagitis; E78.5 Hyperlipidemia, unspecified; E11.22 Type 2 diabetes mellitus with diabetic chronic kidney disease; N18.9 Chronic kidney disease, unspecified; E11.42 Type 2 diabetes mellitus with diabetic polyneuropathy; F41.9 Anxiety disorder, unspecified; F32.A Depression, unspecified; E11.69 Type 2 diabetes mellitus with other specified complication; I25.10 Atherosclerotic heart disease of native coronary artery without angina pectoris; N17.9 Acute kidney failure, unspecified; R33.9 Retention of urine, unspecified; Z83.3 Family history of diabetes mellitus; Z86.73 Personal history of transient ischemic attack (TIA), and cerebral infarction without residual deficits; Z82.49 Family history of ischemic heart disease and other diseases of the circulatory system; Z87.891 Personal history of nicotine dependence; Z95.810 Presence of automatic (implantable) cardiac defibrillator; Z88.2 Allergy status to sulfonamides; Z88.8 Allergy status to other drugs, medicaments and biological substances; Z95.5 Presence of coronary angioplasty implant and graft; Z90.49 Acquired absence of other specified parts of digestive tract; Z20.822 Contact with and (suspected) exposure to COVID-19; Z79.82 Long term (current) use of aspirin; Z79.4 Long term (current) use of insulin
CPT/HCPCS: 36415; 71045; 80048; 80053; 81001; 82550; 82553; 82948; 83605; 83735; 83880; 84484; 85025; 87040; 93005; 94640; 94660; 94799; 96372; 99284; G0378; J0456; J0696; J1817; J1940; J2405; J7050

== ENCOUNTER 2022-02-25 18:18 | Inpatient (IN) | payer MEDICARE ==
[~2022-02-25] VITALS: Ht 172.7 cm; Wt 122.2 kg
[~2022-02-25 18:18] MED LIST changes: +AMLODIPINE BESY10 MG PO; +FOLIC ACID-VIT1 EACH PO; +MIRTAZAPINE7.5 MG PO; +ROZEREM8 MG PO; +SEROQUEL100 MG PO; +SERTRALINE HCL50 MG PO; +WELLBUTRIN SR150 MG PO; +ZITHROMAX250 MG PO
[2022-02-25 18:52] LABS: BASOPHILS % 0.9 % (0.0-1.0); EOSINOPHILS # (AUTO) 0.2 (0.0-0.4); EOSINOPHILS % 3.5 % (0.0-6.0); HEMATOCRIT 36.1 % (38.2-49.6); HEMOGLOBIN 11.1 g/dL (14.0-18.0); LYMPHOCYTES # (AUTO) 0.3 (1.0-3.2); LYMPHOCYTES % 7.5 % (18.0-39.1); MEAN CORPUSCULAR HEMOGLOBIN 26.2 pg (28-32); MEAN CORPUSCULAR HGB CONC 30.7 g/dL (31-35); MEAN CORPUSCULAR VOLUME 85.3 fL (81-99); MONOCYTES # (AUTO) 0.6 (0.2-0.8); MONOCYTES % 13.4 % (4.4-11.3); NEUTROPHILS # (AUTO) 3.1 (2.1-6.9); NEUTROPHILS % 73.5 % (38.7-80.0); PLATELET COUNT 228 x10e3/uL (140-360); RED BLOOD COUNT 4.23 x10e6/uL (4.3-5.7); RED CELL DISTRIBUTION WIDTH 16.2 % (11.7-14.4)
[2022-02-25] MEDS ORDERED: ACETAMINOPHEN 325 MG TAB PO STA (19:05)
[2022-02-25 19:06] LABS: ALANINE AMINOTRANSFERASE 130 IU/L (0-55); ALBUMIN 3.8 g/dL (3.5-5.0); ALBUMIN/GLOBULIN RATIO 1.1 (0.8-2.0); ALKALINE PHOSPHATASE 68 IU/L (40-150); ANION GAP 18.3 mmol/L (8-16); BLOOD UREA NITROGEN 20 mg/dL (7-26); BUN/CREATININE RATIO 10 (6-25); CALCIUM 9.1 mg/dL (8.4-10.2); CARBON DIOXIDE 24 mmol/L (22-29); CHLORIDE 99 mmol/L (98-107); CREATINE KINASE 1384 IU/L (30-200); CREATININE, SERUM 1.95 mg/dL (0.72-1.25); GLUCOSE 157 mg/dL (74-118); POTASSIUM 4.3 mmol/L (3.5-5.1); SODIUM 137 mmol/L (136-145)
[2022-02-25 20:03] LABS: AMPHETAMINES SCREEN,URINE NEGATIVE (NEGATIVE); BENZODIAZEPINES SCREEN,URINE NEGATIVE (NEGATIVE); PHENCYCLIDINE SCREEN,URINE NEGATIVE (NEGATIVE)
[2022-02-25] MEDS: SODIUM CHLORIDE FLUSH 10 ML SYR INJ PRN (20:43)
[2022-02-25] MEDS: Morphine 4mg INJECTION 4 MG/ML INJ IV PRN (20:43)
[2022-02-25] MEDS: ONDANSETRON HCL INJ 2MG/ML 2ML 2 MG/ML VIAL IV PRN (20:43)
[2022-02-25 21:55] VITALS: BP 148/74
[2022-02-25] MEDS: GUAIFENESIN/DEXTROMETHORPHAN LIQD 5 ML UDC NG PRN (22:46)
[2022-02-26] VITALS (8 sets, daily range): BP systolic 121–168; BP diastolic 62–82
[2022-02-26] MEDS: Morphine 4mg INJECTION 4 MG/ML INJ IV PRN ×4 (01:23→15:36)
[2022-02-26 05:26] LABS: BASOPHILS % 0.8 % (0.0-1.0); EOSINOPHILS # (AUTO) 0.1 (0.0-0.4); EOSINOPHILS % 3.7 % (0.0-6.0); HEMATOCRIT 37.1 % (38.2-49.6); HEMOGLOBIN 11.1 g/dL (14.0-18.0); LYMPHOCYTES # (AUTO) 0.5 (1.0-3.2); LYMPHOCYTES % 12.5 % (18.0-39.1); MEAN CORPUSCULAR HEMOGLOBIN 25.9 pg (28-32); MEAN CORPUSCULAR HGB CONC 29.9 g/dL (31-35); MEAN CORPUSCULAR VOLUME 86.7 fL (81-99); MONOCYTES # (AUTO) 0.6 (0.2-0.8); MONOCYTES % 14.9 % (4.4-11.3); NEUTROPHILS # (AUTO) 2.5 (2.1-6.9); PLATELET COUNT 211 x10e3/uL (140-360); RED BLOOD COUNT 4.28 x10e6/uL (4.3-5.7); RED CELL DISTRIBUTION WIDTH 16.2 % (11.7-14.4)
[2022-02-26 05:50] LABS: ALBUMIN 3.6 g/dL (3.5-5.0); ANION GAP 16.9 mmol/L (8-16); CREATININE, SERUM 2.16 mg/dL (0.72-1.25); POTASSIUM 3.9 mmol/L (3.5-5.1)
[2022-02-26 06:08] LABS: CREATINE KINASE MB 2.5 ng/mL (0-5.0)
[2022-02-26] MEDS: GUAIFENESIN/DEXTROMETHORPHAN LIQD 5 ML UDC NG PRN ×3 (08:11→20:10)
[2022-02-26] MEDS: ONDANSETRON HCL INJ 2MG/ML 2ML 2 MG/ML VIAL IV PRN ×3 (10:36→20:19)
[2022-02-26] MEDS: SODIUM CHLORIDE FLUSH 10 ML SYR INJ PRN ×3 (10:37→16:13)
[2022-02-26 11:23] LABS: % IRON SATURATION 9 % (15-50); IRON 35 ug/dL (65-175); TOTAL IRON BINDING CAPACITY 410 ug/dL (261-478); TRANSFERRIN 293 mg/dL (174-364)
[2022-02-26 14:14] LABS: CREATINE KINASE MB 2.3 ng/mL (0-5.0)
[2022-02-26] MEDS ORDERED: BEBTELOVIMAB 175 MG INJ IV ONE (15:15)
[2022-02-26] MEDS ORDERED: SOD PHOSPHATE/SOD BIPHOSPHATE ENEMA 132 ML BTL PR ONE (17:00)
[2022-02-26] MEDS ORDERED: DEXTROSE 50% SYRINGE 50 ML IV PRN (17:30)
[2022-02-26] MEDS: MEMANTINE 10 MG TAB PO SCH (18:12)
[2022-02-26] MEDS: TAMSULOSIN HCL 0.4 MG CAP PO SCH (18:12)
[2022-02-26] MEDS: APIXABAN 5 MG TABLET PO SCH (18:12)
[2022-02-26] MEDS: METOPROLOL SUCCINATE 25 MG TAB XL PO SCH (18:12)
[2022-02-26 19:05] LABS: CREATINE KINASE MB 2.2 ng/mL (0-5.0)
[2022-02-26] MEDS: ACETAMINOPHEN 325 MG TAB PO PRN (20:08)
[2022-02-26] MEDS: QUETIAPINE FUMARATE 100 MG TAB PO SCH (20:09)
[2022-02-26] MEDS: FENOFIBRATE 145 MG TAB PO SCH (20:09)
[2022-02-26] MEDS: DONEPEZIL HCL 5 MG TAB PO SCH (20:11)
[2022-02-26] MEDS: BUPROPION HCL 150 MG TABCR PO SCH (20:11)
[2022-02-26] MEDS ORDERED: NON-FORMULARY MEDICATION (Rosuvastatin Calcium 1 TAB) PO SCH (21:00)
[2022-02-26] MEDS ORDERED: NPH, HUMAN INSULIN ISOPHANE 100 UNIT/1 ML 3ML VIAL SQ SCH (21:00)
[2022-02-26] MEDS ORDERED: QUETIAPINE FUMARATE PO SCH (21:00)
[2022-02-26] MEDS ORDERED: CRESTOR 10MG PO SCH (21:00)
[2022-02-26] MEDS ORDERED: MIRTAZAPINE 15 MG TAB PO SCH (21:00)
[2022-02-26] MEDS ORDERED: RAMELTEON PO SCH (21:00)
[2022-02-26] MEDS: INSULIN LISPRO 100 UNIT/1 ML 3ML VIAL SQ SCH (22:26)
[2022-02-27] VITALS (9 sets, daily range): BP systolic 104–140; BP diastolic 47–81
[2022-02-27] MEDS: LEVOTHYROXINE SODIUM 88 MCG TAB PO SCH (06:00)
[2022-02-27] MEDS: GUAIFENESIN/DEXTROMETHORPHAN LIQD 5 ML UDC NG PRN ×2 (06:01→14:37)
[2022-02-27 06:05] LABS: BASOPHILS % 0.5 % (0.0-1.0); EOSINOPHILS # (AUTO) 0.2 (0.0-0.4); EOSINOPHILS % 4.9 % (0.0-6.0); HEMATOCRIT 37.3 % (38.2-49.6); HEMOGLOBIN 11.5 g/dL (14.0-18.0); LYMPHOCYTES # (AUTO) 0.6 (1.0-3.2); MEAN CORPUSCULAR HEMOGLOBIN 26.1 pg (28-32); MEAN CORPUSCULAR HGB CONC 30.8 g/dL (31-35); MEAN CORPUSCULAR VOLUME 84.6 fL (81-99); MONOCYTES # (AUTO) 0.7 (0.2-0.8); MONOCYTES % 16.8 % (4.4-11.3); NEUTROPHILS # (AUTO) 2.4 (2.1-6.9); NEUTROPHILS % 61.3 % (38.7-80.0); PLATELET COUNT 187 x10e3/uL (140-360); RED BLOOD COUNT 4.41 x10e6/uL (4.3-5.7); RED CELL DISTRIBUTION WIDTH 15.9 % (11.7-14.4)
[2022-02-27 06:39] LABS: ALBUMIN 3.6 g/dL (3.5-5.0); ALBUMIN/GLOBULIN RATIO 1.1 (0.8-2.0); ANION GAP 15.8 mmol/L (8-16); CALCIUM 8.7 mg/dL (8.4-10.2); CREATININE, SERUM 1.91 mg/dL (0.72-1.25); POTASSIUM 3.8 mmol/L (3.5-5.1)
[2022-02-27] MEDS: INSULIN LISPRO 100 UNIT/1 ML 3ML VIAL SQ SCH ×4 (07:30→21:24)
[2022-02-27] MEDS: BUPROPION HCL 150 MG TABCR PO SCH ×2 (07:48→21:25)
[2022-02-27] MEDS: MEMANTINE 10 MG TAB PO SCH ×2 (07:48→17:40)
[2022-02-27] MEDS: APIXABAN 5 MG TABLET PO SCH ×2 (07:48→17:40)
[2022-02-27] MEDS: PANTOPRAZOLE SOD 40 MG TABEC PO SCH (07:48)
[2022-02-27] MEDS: TAMSULOSIN HCL 0.4 MG CAP PO SCH ×2 (07:49→17:40)
[2022-02-27] MEDS: METOPROLOL SUCCINATE 25 MG TAB XL PO SCH ×2 (07:49→17:41)
[2022-02-27] MEDS: ONDANSETRON HCL INJ 2MG/ML 2ML 2 MG/ML VIAL IV PRN ×2 (07:49→14:37)
[2022-02-27] MEDS: POLYETHYLENE GLYCOL 3350 17 GM PACK PO SCH (07:49)
[2022-02-27] MEDS: ASPIRIN 81 MG ENTERIC COATED PO SCH (07:49)
[2022-02-27 08:25] LABS: AMYLASE 32 U/L (25-125); LIPASE 16 U/L (8-78)
[2022-02-27] MEDS ORDERED: POTASSIUM CHLORIDE 10MEQ EA PO SCH (09:00)
[2022-02-27] MEDS ORDERED: POTASSIUM CHLORIDE PO SCH (09:00)
[2022-02-27] MEDS ORDERED: AMLODIPINE BESYLATE 10 MG TAB PO SCH (09:00)
[2022-02-27] MEDS ORDERED: TORSEMIDE 10 MG TAB PO SCH (09:00)
[2022-02-27] MEDS ORDERED: SERTRALINE HCL 50 MG TAB PO SCH (09:00)
[2022-02-27] MEDS: IRON SUCROSE 100 MG in SODIUM CHLORIDE 0.9% 100 ML IV SCH (10:37)
[2022-02-27] MEDS: ACETAMINOPHEN 325 MG TAB PO PRN (14:38)
[2022-02-27] MEDS: FENOFIBRATE 145 MG TAB PO SCH (21:25)
[2022-02-27] MEDS: DONEPEZIL HCL 5 MG TAB PO SCH (21:25)
[2022-02-27] MEDS: QUETIAPINE FUMARATE 100 MG TAB PO SCH (21:25)
[2022-02-28] VITALS (7 sets, daily range): BP systolic 126–149; BP diastolic 65–75
[2022-02-28 05:56] LABS: BASOPHILS % 0.3 % (0.0-1.0); EOSINOPHILS # (AUTO) 0.3 (0.0-0.4); EOSINOPHILS % 8.2 % (0.0-6.0); HEMATOCRIT 33.4 % (38.2-49.6); HEMOGLOBIN 10.6 g/dL (14.0-18.0); LYMPHOCYTES # (AUTO) 0.7 (1.0-3.2); LYMPHOCYTES % 20.6 % (18.0-39.1); MEAN CORPUSCULAR HEMOGLOBIN 26.4 pg (28-32); MEAN CORPUSCULAR HGB CONC 31.7 g/dL (31-35); MEAN CORPUSCULAR VOLUME 83.1 fL (81-99); MONOCYTES # (AUTO) 0.4 (0.2-0.8); MONOCYTES % 13.3 % (4.4-11.3); NEUTROPHILS # (AUTO) 1.9 (2.1-6.9); NEUTROPHILS % 56.4 % (38.7-80.0); PLATELET COUNT 186 x10e3/uL (140-360); RED BLOOD COUNT 4.02 x10e6/uL (4.3-5.7); RED CELL DISTRIBUTION WIDTH 15.4 % (11.7-14.4)
[2022-02-28] MEDS: LEVOTHYROXINE SODIUM 88 MCG TAB PO SCH (06:25)
[2022-02-28] MEDS: GUAIFENESIN/DEXTROMETHORPHAN LIQD 5 ML UDC NG PRN ×2 (06:26→17:05)
[2022-02-28 06:43] LABS: ANION GAP 14.5 mmol/L (8-16); CALCIUM 8.5 mg/dL (8.4-10.2); CREATININE, SERUM 1.53 mg/dL (0.72-1.25); POTASSIUM 3.5 mmol/L (3.5-5.1)
[2022-02-28] MEDS: IRON SUCROSE 100 MG in SODIUM CHLORIDE 0.9% 100 ML IV SCH (09:30)
[2022-02-28] MEDS: APIXABAN 5 MG TABLET PO SCH ×2 (09:31→17:05)
[2022-02-28] MEDS: FUROSEMIDE 20 MG TAB PO SCH (09:31)
[2022-02-28] MEDS: ASPIRIN 81 MG ENTERIC COATED PO SCH (09:31)
[2022-02-28] MEDS: PANTOPRAZOLE SOD 40 MG TABEC PO SCH (09:31)
[2022-02-28] MEDS: TAMSULOSIN HCL 0.4 MG CAP PO SCH ×2 (09:31→17:05)
[2022-02-28] MEDS: MEMANTINE 10 MG TAB PO SCH ×2 (09:31→17:05)
[2022-02-28] MEDS: POLYETHYLENE GLYCOL 3350 17 GM PACK PO SCH (09:31)
[2022-02-28] MEDS: METOPROLOL SUCCINATE 25 MG TAB XL PO SCH ×2 (09:32→17:05)
[2022-02-28] MEDS: BUPROPION HCL 150 MG TABCR PO SCH ×2 (09:32→20:30)
[2022-02-28] MEDS: INSULIN LISPRO 100 UNIT/1 ML 3ML VIAL SQ SCH ×4 (09:35→20:43)
[2022-02-28] MEDS: DONEPEZIL HCL 5 MG TAB PO SCH (20:29)
[2022-02-28] MEDS: FENOFIBRATE 145 MG TAB PO SCH (20:30)
[2022-02-28] MEDS: QUETIAPINE FUMARATE 100 MG TAB PO SCH (20:30)
[2022-03-01] VITALS (8 sets, daily range): BP systolic 137–152; BP diastolic 69–82
[2022-03-01] MEDS: LEVOTHYROXINE SODIUM 88 MCG TAB PO SCH (05:13)
[2022-03-01 05:52] LABS: EOSINOPHILS # (AUTO) 0.3 (0.0-0.4); EOSINOPHILS % 8.1 % (0.0-6.0); HEMATOCRIT 34.8 % (38.2-49.6); HEMOGLOBIN 10.8 g/dL (14.0-18.0); LYMPHOCYTES # (AUTO) 0.9 (1.0-3.2); LYMPHOCYTES % 28.1 % (18.0-39.1); MEAN CORPUSCULAR HEMOGLOBIN 26.3 pg (28-32); MEAN CORPUSCULAR VOLUME 84.9 fL (81-99); MONOCYTES # (AUTO) 0.4 (0.2-0.8); MONOCYTES % 12.9 % (4.4-11.3); NEUTROPHILS # (AUTO) 1.5 (2.1-6.9); NEUTROPHILS % 48.9 % (38.7-80.0); PLATELET COUNT 188 x10e3/uL (140-360); RED CELL DISTRIBUTION WIDTH 15.5 % (11.7-14.4)
[2022-03-01 06:15] LABS: ALBUMIN 3.3 g/dL (3.5-5.0); ALBUMIN/GLOBULIN RATIO 0.9 (0.8-2.0); ANION GAP 15.6 mmol/L (8-16); CALCIUM 8.5 mg/dL (8.4-10.2); CREATININE, SERUM 1.39 mg/dL (0.72-1.25); POTASSIUM 3.6 mmol/L (3.5-5.1)
[2022-03-01] MEDS: INSULIN LISPRO 100 UNIT/1 ML 3ML VIAL SQ SCH ×4 (08:30→20:20)
[2022-03-01] MEDS: PANTOPRAZOLE SOD 40 MG TABEC PO SCH (08:36)
[2022-03-01] MEDS: APIXABAN 5 MG TABLET PO SCH ×2 (08:36→16:46)
[2022-03-01] MEDS: POLYETHYLENE GLYCOL 3350 17 GM PACK PO SCH (08:36)
[2022-03-01] MEDS: ASPIRIN 81 MG ENTERIC COATED PO SCH (08:36)
[2022-03-01] MEDS: FUROSEMIDE 20 MG TAB PO SCH (08:36)
[2022-03-01] MEDS: TAMSULOSIN HCL 0.4 MG CAP PO SCH ×2 (08:36→16:46)
[2022-03-01] MEDS: MEMANTINE 10 MG TAB PO SCH ×2 (08:36→16:46)
[2022-03-01] MEDS: METOPROLOL SUCCINATE 25 MG TAB XL PO SCH ×2 (08:37→16:47)
[2022-03-01] MEDS: BUPROPION HCL 150 MG TABCR PO SCH ×2 (09:28→20:13)
[2022-03-01] MEDS: IRON SUCROSE 100 MG in SODIUM CHLORIDE 0.9% 100 ML IV SCH (10:17)
[2022-03-01] MEDS: GUAIFENESIN/DEXTROMETHORPHAN LIQD 5 ML UDC NG PRN (12:36)
[2022-03-01] MEDS: DONEPEZIL HCL 5 MG TAB PO SCH (20:13)
[2022-03-01] MEDS: QUETIAPINE FUMARATE 100 MG TAB PO SCH (20:13)
[2022-03-01] MEDS: FENOFIBRATE 145 MG TAB PO SCH (20:13)
[2022-03-02] VITALS (8 sets, daily range): BP systolic 122–155; BP diastolic 57–90
[2022-03-02] MEDS: LEVOTHYROXINE SODIUM 88 MCG TAB PO SCH (05:36)
[2022-03-02] MEDS: INSULIN LISPRO 100 UNIT/1 ML 3ML VIAL SQ SCH ×4 (08:00→21:51)
[2022-03-02] MEDS: IRON SUCROSE 100 MG in SODIUM CHLORIDE 0.9% 100 ML IV SCH (09:00)
[2022-03-02] MEDS: POLYETHYLENE GLYCOL 3350 17 GM PACK PO SCH (09:09)
[2022-03-02] MEDS: FUROSEMIDE 20 MG TAB PO SCH (09:09)
[2022-03-02] MEDS: PANTOPRAZOLE SOD 40 MG TABEC PO SCH (09:09)
[2022-03-02] MEDS: ASPIRIN 81 MG ENTERIC COATED PO SCH (09:09)
[2022-03-02] MEDS: TAMSULOSIN HCL 0.4 MG CAP PO SCH ×2 (09:09→15:35)
[2022-03-02] MEDS: APIXABAN 5 MG TABLET PO SCH ×2 (09:10→15:35)
[2022-03-02] MEDS: METOPROLOL SUCCINATE 25 MG TAB XL PO SCH ×2 (09:10→15:35)
[2022-03-02] MEDS: MEMANTINE 10 MG TAB PO SCH ×2 (09:10→15:35)
[2022-03-02] MEDS: BUPROPION HCL 150 MG TABCR PO SCH ×2 (09:36→21:49)
[2022-03-02] MEDS: GUAIFENESIN/DEXTROMETHORPHAN LIQD 5 ML UDC NG PRN (12:33)
[2022-03-02] MEDS ORDERED: QUETIAPINE FUMARATE 100 MG TAB PO SCH (21:00)
[2022-03-02] MEDS: FENOFIBRATE 145 MG TAB PO SCH (21:49)
[2022-03-02] MEDS: DONEPEZIL HCL 5 MG TAB PO SCH (21:49)
[2022-03-03] VITALS: BP 149/64
[2022-03-03 04:00] VITALS: BP 145/77
[2022-03-03 06:03] LABS: BASOPHILS % 0.5 % (0.0-1.0); EOSINOPHILS # (AUTO) 0.2 (0.0-0.4); EOSINOPHILS % 4.1 % (0.0-6.0); HEMATOCRIT 34.7 % (38.2-49.6); HEMOGLOBIN 10.8 g/dL (14.0-18.0); LYMPHOCYTES # (AUTO) 0.7 (1.0-3.2); LYMPHOCYTES % 17.3 % (18.0-39.1); MEAN CORPUSCULAR HEMOGLOBIN 26.3 pg (28-32); MEAN CORPUSCULAR HGB CONC 31.1 g/dL (31-35); MEAN CORPUSCULAR VOLUME 84.4 fL (81-99); MONOCYTES # (AUTO) 0.4 (0.2-0.8); MONOCYTES % 10.9 % (4.4-11.3); NEUTROPHILS # (AUTO) 2.5 (2.1-6.9); NEUTROPHILS % 62.1 % (38.7-80.0); PLATELET COUNT 209 x10e3/uL (140-360); RED BLOOD COUNT 4.11 x10e6/uL (4.3-5.7); RED CELL DISTRIBUTION WIDTH 15.1 % (11.7-14.4)
[2022-03-03] MEDS: LEVOTHYROXINE SODIUM 88 MCG TAB PO SCH (06:05)
[2022-03-03 06:24] LABS: ANION GAP 14.5 mmol/L (8-16); CALCIUM 8.4 mg/dL (8.4-10.2); CREATININE, SERUM 1.21 mg/dL (0.72-1.25); POTASSIUM 3.5 mmol/L (3.5-5.1)
[2022-03-03 08:00] VITALS: BP 145/77
[2022-03-03 08:32] VITALS: BP 156/64
[2022-03-03] MEDS ORDERED: SODIUM CHLORIDE 0.9% 100 ML ONE (08:47)
[2022-03-03] MEDS: IRON SUCROSE 100 MG in SODIUM CHLORIDE 0.9% 100 ML IV SCH (09:00)
[2022-03-03] MEDS: APIXABAN 5 MG TABLET PO SCH (09:48)
[2022-03-03] MEDS: ASPIRIN 81 MG ENTERIC COATED PO SCH (09:48)
[2022-03-03] MEDS: FUROSEMIDE 20 MG TAB PO SCH (09:48)
[2022-03-03] MEDS: TAMSULOSIN HCL 0.4 MG CAP PO SCH (09:48)
[2022-03-03] MEDS: BUPROPION HCL 150 MG TABCR PO SCH (09:48)
[2022-03-03] MEDS: MEMANTINE 10 MG TAB PO SCH (09:48)
[2022-03-03] MEDS: METOPROLOL SUCCINATE 25 MG TAB XL PO SCH (09:48)
[2022-03-03] MEDS: PANTOPRAZOLE SOD 40 MG TABEC PO SCH (09:48)
[2022-03-03] MEDS: POLYETHYLENE GLYCOL 3350 17 GM PACK PO SCH (09:48)
[2022-03-03] MEDS: INSULIN LISPRO 100 UNIT/1 ML 3ML VIAL SQ SCH ×2 (09:50→12:14)
[2022-03-03] MEDS ORDERED: FUROSEMIDE20 MG PO (12:14)
[2022-03-03] MEDS ORDERED: Insulin Lispro SQ (12:14)
[2022-03-03 13:38] VITALS: BP 139/72
== END 2022-03-03 16:10 | disposition home or self-care (01) | DRG 177 ==
LOC: ER 18:24 → ERHOLD 20:02 → INTOOBSV 20:02 → MED/SURG2 21:00 → OBSVTOIN 02-27 08:32
PROVIDERS: ADMIT Internal Medicine; ATTEND Internal Medicine
PROC: 5A09357 Assistance with Respiratory Ventilation, Less than 24 Consecutive Hours, Continuous Positive Airway Pressure (ICD-10-PCS; principal; 2022-02-27)
DX: U07.1 COVID-19 (principal); I50.43 Acute on chronic combined systolic (congestive) and diastolic (congestive) heart failure; J96.01 Acute respiratory failure with hypoxia; K85.90 Acute pancreatitis without necrosis or infection, unspecified; I13.0 Hypertensive heart and chronic kidney disease with heart failure and stage 1 through stage 4 chronic kidney disease, or unspecified chronic kidney disease; N17.9 Acute kidney failure, unspecified; M62.82 Rhabdomyolysis; Z68.41 Body mass index [BMI] 40.0-44.9, adult; N18.30 Chronic kidney disease, stage 3 unspecified; E11.22 Type 2 diabetes mellitus with diabetic chronic kidney disease; Z79.899 Other long term (current) drug therapy; F03.90 Unspecified dementia, unspecified severity, without behavioral disturbance, psychotic disturbance, mood disturbance, and anxiety; K76.0 Fatty (change of) liver, not elsewhere classified; E78.5 Hyperlipidemia, unspecified; E11.69 Type 2 diabetes mellitus with other specified complication; I25.10 Atherosclerotic heart disease of native coronary artery without angina pectoris; R74.01 Elevation of levels of liver transaminase levels; G47.33 Obstructive sleep apnea (adult) (pediatric); E66.01 Morbid (severe) obesity due to excess calories; Z74.09 Other reduced mobility; E27.9 Disorder of adrenal gland, unspecified; Z95.5 Presence of coronary angioplasty implant and graft; Z95.0 Presence of cardiac pacemaker; Z88.2 Allergy status to sulfonamides
CPT/HCPCS: 0223U; 36415; 71045; 74176; 80048; 80053; 80307; 82150; 82550; 82553; 82607; 82746; 82948; 83540; 83605; 83690; 83880; 84466; 84478; 84484; 85025; 85045; 85379; 86301; 87040; 93005; 94660; 94799; 96372; 99251; 99284; G0378; J1756; J2270; J2405; J7050